=== PATIENT | male | born 1940 | race Caucasian/White ===

== ENCOUNTER 2019-12-16 12:51 | Observation (INO) | payer MEDICARE, OTHER ==
[~2019-12-16] VITALS: Ht 193 cm; Wt 107.5 kg
--- NOTE | 2019-12-16 12:51 | NUR ---
PATIENT PRESENTED TO THE EMERGENCY ROOM WITH ADMISSION ORDERS FROM DR ORTEGA'S OFFICE; [facility] ADMINISTRATOR NOTIFIED AND PATIENT REDIRECTED TOT HE FRONT FOR DIRECT ADMISSION
--- OUTSIDE RECORDS SUMMARY | 2019-12-16 12:53 | XMS REPORT | Continuity of Care Document ---
Author Author Max [place] [employer] YESSY E[place] tag[place] Address Unknown Phone Unavailable Care Team Providers Care Wireless Sales Associate Name Role Phone [email or web address] Unavailable Un available Problems Problem Status Onset Date Classification Date Reported Comments Source LEFT SHOULDER Active 12/04/2019 [facility] [place] DX: S43.005A=UNSPECIFIED DISLOCATION OF Active 11/11/2019 [facility] Abrasion of other part of head, initial encounter 10/27/2019 10/29/2019 [facility] Anterior dislocation of unspecified mari leslye, initial encounter 10/27/2019 10/29/2019 [facility] SHOULDER PAIN OR INJURY Active 10/27/2019 [facility] Unspecified injury of head, initial encounter 02/05/2019 02/07/2019 [facility] EYE PAIN Active 02/05/2019 [facility] NEAR SYNCOPE Active 01/28/2019 [facility] WEAKNESS Active 01/28/2019 [facility] Hypertension Active 09/29/2013 [facility] Hyperlipidemia Active 09/29/2013 [facility] Type 2 Diabetes Mellitus Active 09/29/2013 [facility] Urine Tests Nonspecific Abnormal Findings Active 09/29/2013 [facility] Hyperactivity Of The Bladder A ctive 09/29/2013 [facility] 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 WASTE: F/P - Black; E - Municipal Trash Bin Inactive 11/27/2019 [facility] Dotarem 376.9 mg /mL (0.5 mmol/mL) intravenous solutio n Notes: (Same as: Dotarem) Inactive 11/27/2019 [facility] Valium 5 mg, Route: IVP, Drug form: INJ, ONCE, Dosing Weight 104.545, kg, Priority: STAT, Start date: 10/27/19 17:57:00 CDT, Stop date: 10/27/19 17:57:00 CDT Inactive 10/27/2019 [facility] Fentanyl 50 microgram, Route: IVP, ONCE, Dosing Weight 104.545, kg, Priority: STAT, Start date: 10/27/19 17:57:00 CDT, Stop date: 10/27/19 17:57:00 CDT Inactive 10/27/2019 [facility] Versed 5 mg, Route: IVP, ONCE, Dosing Weight 104.545, kg, Priority: STAT, Start date: 10/27/19 17:56:00 CDT, Stop date: 10/27/19 17:56:00 CDT Inactive 10/27/2019 [facility] Acetaminophen 300 MG / Codeine Phosphate 30 MG Oral Tablet [Tylenol with Codeine #3] 1 tab, PO, Q6H, PRN Pain, X 7 day, # 11 tab, 0 Refill(s) Active 10/27/2019 [facility] Ondansetron Notes: (Same as: [place] orona) MEDICATION WASTE Product Size: 4 mg Product Wasted: ___ mg Inactive 10/27/2019 [facility] Morphine Notes: (Same as:MORPh ine Sulfate) Inactive 10/27/2019 [facility] tramadol hydrochloride 50 MG Oral Tablet 50 mg = 1 tab, PO, BID, X 3 day, # 6 tab, 0 Refill(s) Active 02/05/2019 [facility] Tramadol 50 kg, Priority: STA T, Start date: 02/05/19 14:19:00 CDT, Stop date: 02/05/19 14:19:00 CDT Inactive 02/05/2019 [facility] remove patch 1 patch, Route: T OP, Drug form: ERFILM, ONCE, Start date: 01/31/19 13:08:00 CDT, Stop date: 01/31/19 13:08:00 CDT, 0 No Longer Active 01/31/2019 [facility] Aspirin Enteric Coated 81 mg oral delaye d release tablet 81 mg = 1 tab, PO, Daily, # 30 tab, 0 Re fill(s), Pharmacy: [facility]/pharmacy #[id number] Active 01/29/2019 [facility] meclizine 25 mg oral tablet 25 mg = 1 tab, PO, TID, PRN Dizziness, # 20 tab, 0 Refill(s), Pharmacy: [facility]/pharmacy #[id number] Active 01/29/2019 [facility] Protonix Notes: Tablet should not be chewed or crushed. (Same as: Protonix) Inactive 01/29/2019 [facility] Lovenox Notes: (Same as: Loven ox) No Longer Active 01/29/2019 [facility] lisinopril 40 mg oral tablet 4 0 mg = 1 tab, PO, Daily, # 30 tab, 0 Refill(s) Active 01/28/2019 [facility] levothyroxine 75 mcg (0.075 mg) oral tablet 75 microgram = 1 tab, PO, Daily, # 30 tab, 0 Refill(s) Active 01/28/2019 [facility] atorvastatin 40 mg oral tablet 40 mg = 1 tab, PO, Bedtime, # 30 tab, 0 Refill(s) Active 01/28/2019 [facility] Vitamin D3 2000 intl units oral capsule 2,000 IntlUnit = 1 cap, PO, Daily, # 100 cap, 3 Refill(s) Active 01/28/2019 [facility] 24 HR Bupropion Hydrochloride 150 MG Ext ended Release Tablet 150 mg = 1 tab, PO, Q24H, # 30 tab, 0 Refill(s) Active 01/28/2019 [facility] Clonidine Hydrochloride 0.1 MG Oral Tablet 0.1 mg = 1 tab, PO, Daily, # 90 tab, 3 Refill(s) Active 01/28/2019 [facility] metoprolol extended release 50 mg, PO, Daily, 0 Refill(s) Active 01/28/2019 [facility] amLODIPine 5 mg oral tablet 5 mg = 1 tab, PO, Daily, # 30 tab, 0 Refill(s) Active 01/28/2019 [facility] Meclizine Notes: (Same as: Ant ivert) No Longer Active 01/28/2019 [facility] 72 HR Scopolamine 0.0139 MG/HR Transdermal Patch Notes: Change patch every 72 hours (Same as: Transderm-Scop) Inactive 01/28/2019 [facility] Nicotine Notes: (Same as: Conrado almodovar) "Remove old patch before application of new patch" WASTE: F/P - P Waste Black; E - P Waste Black No Longer Active 01/28/2019 [facility] Seroquel Notes: (Same as: SERO quel) No Longer Active 01/28/2019 [facility] Hydralazine Notes: (Same as: A presoline) Push over 5 minutes No Longer Active 01/28/2019 [facility] Acetaminophen 325 MG / Hydrocodone Hemalatha trate 5 MG Oral Tablet [[place] 5/325] Notes: (Same as: [place] 325/5) Do not ex ceed 4gm/day of acetaminophen. No Longer Activ e 01/28/2019 [facility] Maalox Advanced Regular Strength SUSP Notes: (aluminum hydroxide-magnesium hyd-simethicone [phone]/5ml 30 ml ud RODGER) No Longer Active 01/28/2019 [facility] Albuterol 0.833 MG/ML / Ipratropium Brom lb 0.167 MG/ML Inhalant Solution [DuoNeb] Notes: (Same as: Duoneb) Inactive 01/28/2019 [facility] phenol Notes: WASTE: F/P - Clark ck; E - Municipal Trash Bin No Longer Active 01/28/2019 [facility] Mucinex Notes: (Same as: Guaif enesin LA, Humibid LA, Mucinex) "Do Not Crush" Take medication with plenty of water. No Longer Active 01/28/2019 [facility] Simethicone Notes: (Same as: Megan ylicon) No Longer Active 01/28/2019 [facility] Morphine Notes: (Same as:MORPh ine Sulfate) No Longer Active 01/28/2019 [facility] Robitussin-AC oral syrup Notes : (Same As: Robitussin AC) No Longer Active 01/28/2019 [facility] Tessalon Perles Notes: (Same A s: Azaleaon Perles) "Do Not Crush" No Longer Active 01/28/2019 [facility] Acetaminophen Notes: Do not ex ceed 4 gm/day. (Same as: Tylenol) No Longer Active 01/28/2019 [facility] Dextrose 50% Syringe 12.5 gm, 25 mL, Route: IVP, Drug Form: INJ, Dosing Weight 113.636, kg, PRN, PRN Blood Glucose Results, Start date: 01/28/19 12:07:00 CDT, Duration: 30 day, Stop date: 02/27/19 12:06:00 CDT, 0 No Longer Active 01/28/2019 [facility] Melatonin Notes: (Same as: Suzanne atonin) No Longer Active 01/28/2019 [facility] Trazodone Notes: (Same As: Tai yrel) No Longer Active 01/28/2019 [facility] Ondansetron Notes: (Same as: [place] orona) MEDICATION WASTE Product Size: 4 mg Product Wasted: ___ mg No Longer Active 01/28/2019 [facility] Diphenhydramine 25 mg, 1 tab, Route: PO, Drug form: TAB, Q6H, Dosing Weight 113.636, kg, PRN as needed for allergy symptoms, Start date: 01/28/19 12:07:00 CDT, Duration: 30 day, Stop date: 02/27/19 12:06:00 CDT, 0 No Longer Active 01/28/2019 [facility] POLYETHYLENE GLYCOL 3350 Notes : Dissolve in 8 oz of water or juice. (Same as: Miralax) No Longer Active 01/28/2019 [facility] Docusate Notes: (Same as: Cola ce) (Do Not Crush) No Longer Active 01/28/2019 [facility] Glucagon 1 mg, Route: IM, Drug form: PDR/INJ, PRN, Dosing Weight 113.636, kg, PRN Blood Glucose Results, Start date: 01/28/19 12:07:00 CDT, Duration: 30 day, Stop date: 02/27/19 12:06:00 CDT, 0 No Longer Active 01/28/2019 [facility] Bisacodyl Notes: (Same As: Dul colax, Bisco-Lax) No Longer Active 01/28/2019 [facility] Saline Flush 0.9% Notes: Same as: BD Posiflush Sterile Inactive 01/28/2019 [facility] Sodium Chloride 0.9% (Bolus) IV 1,000 mL, 1000 ml/hr, Infuse Over: 1 hr, Route: IV, 1,000, Drug form: INJ, ONCE, Priority: STAT, Dosing Weight 113.636 kg, Start date: 01/28/19 8:00:00 CDT, Stop date: 01/28/19 8:00:00 CDT, 0 Inactive 01/28/2019 [facility] Lisinopril 40 MG Oral Tablet ; Start Date: 05/31/2013; End Date: (Active) Active 05/31/2013 [facility] CloNIDine HCl 0.1 MG Oral Tablet ; Start Date: ; End Date: (Active) Inactive [facility] Atorvastatin Calcium 40 MG Oral Tablet ; Start Date: ; End Date: (Active) Inactive [facility] No Active Medications No Activ e Medications Active [facility] Lipitor 40 MG Oral Tablet (Ac tive) Active [facility] CloNIDine HCl 0.1 MG Oral Tablet (Active) Active [facility] VESIcare 5 MG Oral Tablet (Ac tive) Active [facility] Allergies, Adverse Reactions, Alerts Substance Category Reaction Severity Reaction type Status Date Reported Comments Source Not Known [facility] No Known Drug Allergies drug a llergy drug aller gy Active [facility] Immunizations Immunization Date Given Site Status Last Updated Comments Source diphtheria/pertussis, acel/tetanus adult 02/05/2019 Left deltoid completed [facility] Fluzone Intramuscular Injectable 04/17/2013 completed [facility] Zoster (Zostavax) 08/21/2011 completed [facility] Results Order Name Results Value Reference Range Date Interpretation Comments Source CHEM PANEL Glucose Lvl 96 70 - 99 01/29/2019 [facility] CHEM PANEL BUN 10 7 - 22 01/29/2019 [facility] CHEM PANEL Potassium Lvl 4.4 3.5 - 5.1 01/29/2019 [facility] CHEM PANEL Creatinine Lvl 0.98 0.50 - 1.40 01/29/2019 [facility] CHEM PANEL Sodium Lvl 139 135 - 145 01/29/2019 [facility] CHEM PANEL Calcium Lvl 8.4 8.5 - 10.5 01/29/2019 [facility] CHEM PANEL AGAP 7.4 10.0 - 20.0 01/29/2019 [facility] CHEM PANEL Chloride Lvl 110 95 - 109 01/29/2019 [facility] CHEM PANEL CO2 26 24 - 32 01/29/2019 [facility] CHEM PANEL eGFR 74 01/29/2019 Result Comment: The eGFR is calculated using the CKD-EPI formula. In most young, healthy individuals the eGFR will be >90 mL/min/1.73m2. The eGFR declines with age. An eGFR of 60-89 may be normal in some populations, particularly the elderly, for whom the CKD-EPI formula has not been extensively validated. Use of the eGFR is not recommended in the following populations:

Individuals with unstable creatinine concentrations, including patients and those with serious co-morbid conditions.

Patients with extremes in muscle mass or diet.

The data above are obtained from the National Kidney Disease Education Program (NKDEP) which additionally recommends that when the eGFR is used in patients with extremes of body mass index for purposes of drug dosing, the eGFR should be multiplied by the estimated BMI. [facility] HEMATOLOGY MPV 7.9 7.4 - 10.4 01/29/2019 [facility] HEMATOLOGY Hct 35.3 42.0 - 54.0 01/29/2019 [facility] HEMATOLOGY Hgb 12.2 14.0 - 18.0 01/29/2019 [facility] HEMATOLOGY RBC 3.99 4.70 - 6.10 01/29/2019 [facility] HEMATOLOGY Platelet 142 133 - 450 01/29/2019 [facility] HEMATOLOGY RDW 13.3 11.5 - 14.5 01/29/2019 [facility] HEMATOLOGY MCHC 34.6 32.0 - 36.0 01/29/2019 [facility] MCH 30.6 27.0 - 31.0 01/29/2019 [facility] HEMATOLOGY MCV 88.4 80.0 - 94.0 01/29/2019 [facility] HEMATOLOGY WBC 6.2 3.7 - 10.4 01/29/2019 [facility] LIPIDS CHD Risk 2.61 4.00 - 7.30 01/29/2019 [facility] LIPIDS Chol 99 <=199 mg/dL 01/29/2019 [facility] LIPIDS VLDL 19 01/29/2019 [facility] LIPIDS LDL (Calculated) 42 <=99 mg/dL 01/29/2019 [facility] LIPIDS HDL 38 >=61 mg/dL 01/29/2019 [facility] LIPIDS Trig 95 <=149 mg/dL 01/29/2019 [facility] SPECIAL CHEMISTRY Hgb A1C 6.2 <=5.6 % 01/29/2019 [facility] CARDIAC ENZYMES Troponin-I <0.02 0.00 - 0.40 01/29/2019 [facility] CARDIAC ENZYMES Troponin-I <0.02 0.00 - 0.40 01/28/2019 [facility] CARDIAC ENZYMES Troponin-I <0.02 0.00 - 0.40 01/28/2019 [facility] CARDIAC ENZYMES BNP 25 <=100 pg/mL 01/28/2019 [facility] ELECTROLYTES AGAP 12.7 10.0 - 20.0 01/28/2019 [facility] ELECTROLYTES eGFR 61 01/28/2019 Result Comment: The eGFR is calculated using the CKD-EPI formula. In most young, healthy individuals the eGFR will be >90 mL/min/1.73m2. The eGFR declines with age. An eGFR of 60-89 may be normal in some populations, particularly the elderly, for whom the CKD-EPI formula has not been extensively validated. Use of the eGFR is not recommended in the following populations:

Individuals with unstable creatinine concentrations, including patients and those with serious co-morbid conditions.

Patients with extremes in muscle mass or diet.

The data above are obtained from the National Kidney Disease Education Program (NKDEP) which additionally recommends that when the eGFR is used in patients with extremes of body mass index for purposes of drug dosing, the eGFR should be multiplied by the estimated BMI. [facility] ELECTROLYTES Sodium Lvl 143 135 - 145 01/28/2019 [facility] ELECTROLYTES Chloride Lvl 108 95 - 109 01/28/2019 [facility] ELECTROLYTES Calcium Lvl 8.0 8.5 - 10.5 01/28/2019 [facility] ELECTROLYTES CO2 26 24 - 32 01/28/2019 [facility] ELECTROLYTES Potassium Lvl 3.7 3.5 - 5.1 01/28/2019 [facility] ELECTROLYTES Glucose Lvl 139 70 - 99 01/28/2019 [facility] ELECTROLYTES BUN 11 7 - 22 01/28/2019 [facility] ELECTROLYTES Creatinine Lvl 1.1 5 0.50 - 1.40 01/28/2019 [facility] HEMATOLOGY Eosinophils # 0.2 0.0 - 0.5 01/28/2019 [facility] HEMATOLOGY Basophils 0.3 0.0 - 1.0 01/28/2019 [facility] Lymphocytes 8.8 20.0 - 40.0 01/28/2019 [facility] Monocytes 7.1 2.0 - 12.0 01/28/2019 [facility] HEMATOLOGY Eosinophils 2.6 0.0 - 4.0 01/28/2019 [facility] Monocytes # 0.5 0.0 - 0.8 01/28/2019 [facility] Lymphocytes # 0.6 1.0 - 5.5 01/28/2019 [facility] HEMATOLOGY Neutrophils # 5.9 1.5 - 8.1 01/28/2019 [facility] Segs 81.2 45.0 - 75.0 01/28/2019 [facility] MPV 7.8 7.4 - 10.4 01/28/2019 [facility] Platelet 132 133 - 450 01/28/2019 [facility] RDW 13.4 11.5 - 14.5 01/28/2019 [facility] MCHC 33.9 32.0 - 36.0 01/28/2019 [facility] MCH 30.3 27.0 - 31.0 01/28/2019 [facility] MCV 89.3 80.0 - 94.0 01/28/2019 [facility] Hct 37.3 42.0 - 54.0 01/28/2019 [facility] Hgb 12.6 14.0 - 18.0 01/28/2019 [facility] RBC 4.17 4.70 - 6.10 01/28/2019 [facility] WBC 7.3 3.7 - 10.4 01/28/2019 [facility] Pathology Reports No Data Provided for This Section Diagnostic Reports Report Value Date Source Shoulder w contrast MRI PROCED URE INFORMATION: Exam: MR Left Upper Extremity Joint With Contrast; Shoulder Exam date and time: 11/27/2019 9:14 AM Age: 79 years old Clinical indication: Unspecified dislocation of left shoulder joint, initial encounter; Additional info: S/P arthogram/s43.005a dislocation of left shoulder joint, initial encounter TECHNIQUE: Imaging protocol: MR of the Left upper extremity with contrast. Exam focused on the shoulder. Contrast route: Intra-articular. Please see same-day arthrogram procedure report. COMPARISON: SHOULDER ARTHROGRAM DX, LEFT 11/27/2019 8:44 AM FINDINGS: Motion degraded study. ROTATOR CUFF AND ASSOCIATED STRUCTURES Rotator cuff: There is diffuse thinning of the supraspinatus and infraspinatus tendon. There is a low-grade partial-thickness articular surface tear along the insertion of the supraspinatus measuring about 5 mm in AP dimension. There is also a low-grade partial-thickness articular surface tear of the subscapularis insertion, measuring about 5 mm in mediolateral dimension. There is subscapularis tendinosis. Infraspinatus tendon is intact. Bursa: Trace amount of subacromial-subdeltoid bursal fluid. Musculature: There is minimal muscle edema in the subscapularis, supraspinatus, infraspinatus. Acromioclavicular joint: There is mild degenerative change of the AC joint. Acromion has a type II undersurface. OSSEOUS STRUCTURES There is bone marrow edema in the superior lateral humeral head, suggestive of prior Hill-Sachs injury. This will be described further detailed below. Scattered degenerative marrow edema and cystic changes. LONG BICIPITAL TENDON Biceps tendon is located within bicipital groove. No high-grade biceps tendon tear. GLENOHUMERAL JOINT Cartilage and Bone: There is a nondisplaced Hill-Sachs injury with focal marrow edema in the superior lateral humeral head. There is also marrow edema greater tuberosity. There is very minimal cortical depression. Labrum: There is diffuse degenerative tearing of the labrum. Other support structures: There is a partial tear of the inferior glenohumeral ligament. There is mild associated extravasation of intra-articular contrast. IMPRESSION: 1. Diffuse thinning of the supraspinatus and infraspinatus tendon. Focal low-grade partial-thickness articular surface tear of the supraspinatus insertion. 2. Diffuse subscapularis tendinosis with a low-grade partial thickness articular surface insertional tear. 3. Diffuse degenerative tearing of the l abrum. Evidence of a nondisplaced / nondepressed Hill-Sachs injury, with focal bone marrow edema along the humeral head. This is suggestive of prior dislocation. Mild persistent posterior subluxation of the humeral head relative to the glenoid. 4. Partial inferior glenohumeral ligamen t tear, with mild associated extravasation of intra-articular contrast. Majority of IGHL appears intact. 5. Minimal muscle edema in the subscapul hernandez, supraspinatus, and infraspinatus muscles. 6. Mild AC joint arthrosis. Leodan Barros MD On 11/27/2019 11:40:25; [id number] 11/27/2019 [facility] Shoulder arthrogram DX PROCEDU RE INFORMATION: Exam: IR Left Shoulder arthrography; Radiological Supervision and Interpretation Exam date and time: 11/27/2019 8:44 AM Age: 79 years old Clinical indication: Unspecified dislocation of left shoulder joint, initial encounter; Additional info: /s43.005a TECHNIQUE: Imaging protocol: Left Shoulder arthrography. Radiological supervision and interpretation. The interpreting physician was present and supervised the procedure. Contrast material: OMNIPAQUE 300; Contrast volume: 10 ml; Contrast route: INTRA-ARTICULAR; Other contrast: 0.2 ml dotarem; COMPARISON: SHOULDER SERIES DX, LEFT 10/27/2019 5:37 PM RADIATION DOSE METRICS: Fluoroscopy time: 28 Number of fluoro spot images: 2 Reference air kerma (JACK): 9 mGy FINDINGS: Advanced practice providers: None. CONSENT AND SEDATION INFO: Consent: The procedure, risks, benefits and alternatives of the procedure were discussed. Time out: Timeout was performed prior to the procedure. Procedure summary: Patient was prepped and draped in a sterile fashion. Lidocaine was used for local anesthesia. Left shoulder arthrogram with dilute gadolinium contrast in water soluble nonionic contrast. Approximately 12 cc of contrast instilled into left shoulder under fluoroscopic guidance via 22 gauge spinal needle. The fluoroscopic arthrographic images are normal, without radiographic evidence for complete rotator cuff tear. Procedural imaging: Fluoroscopic guidance as described above. IMPRESSION: Left shoulder arthrogram prior to MRI. No definite fluoroscopic arthrographic abnormality appreciated. Please see MRI study for more specific anatomic data. Sherman Hernandez MD On 11/27/2019 12:44:53; [id number] 11/27/2019 [facility] Shoulder series DX PROCEDURE I NFORMATION: Exam: XR Left Shoulder Exam date and time: 10/27/2019 5:37 PM Age: 79 years old Clinical indication: Pain; Shoulder; Left; Additional info: /post reduction TECHNIQUE: Imaging protocol: XR Left shoulder. Views: 2 or more views. AP INT/ EXT ROTATION, SCAPULAR Y COMPARISON: SHOULDER SERIES DX, LEFT 10/27/2019 2:26 PM FINDINGS: Bones/joints: Previously seen dislocation has been reduced. Soft tissues: No acute pathology appreciated. Notes: If there is further concern, follow-up radiographs or MRI of the shoulder may be performed for complete assessment. IMPRESSION: Successful reduction.. Prema Elmore MD On 10/27/2019 18:13:02; [id number] 10/27/2019 [facility] Hand 2 views DX PROCEDURE INFO RMATION: Exam: XR Left Hand Exam date and time: 10/27/2019 3:11 PM Age: 79 years old Clinical indication: Injury or trauma; Additional info: /pain TECHNIQUE: Imaging protocol: XR Left hand. Views: 1 or 2 views. Frontal Lateral COMPARISON: No relevant prior studies available. FINDINGS: Bones/joints: No acute bony fracture or joint dislocation is seen. There is mild osteoarthrosis throughout the PIP and DIP joints of the hand. Soft tissues: No radiopaque foreign bodies. Notes: If there is further concern, recommend follow-up radiographs or MRI for complete assessment. IMPRESSION: Degenerative changes of the left hand without acute bony abnormality. Michael Collins MD On 10/27/2019 15:37:22; [id number] 10/27/2019 [facility] Trauma Brain wo contrast CT Ra diation Dose CTDIVOL = 0 (mGy): DLP = 1105.56 (mGy-cm) PROCEDURE INFORMATION: Exam: CT Head Without Contrast Exam date and time: 10/27/2019 3:13 PM Age: 79 years old Clinical indication: Injury or trauma; fall. TECHNIQUE: Imaging protocol: Computed tomography of the head without contrast. Total DLP: 1105.56 mGy-cm Radiation optimization: All CT scans at this facility use at least one of these dose optimization techniques: automated exposure control; mA and/or kV adjustment per patient size (includes targeted exams where dose is matched to clinical indication); or iterative reconstruction. COMPARISON: BRAIN WO CONTRAST CT 02/05/2019 2:04 PM FINDINGS: Brain: No acute parenchymal hemorrhage or large subacute infarction. There are areas of low attenuation in the supratentorial white matter that are non-specific, but favor chronic microvascular ischemic changes.No acute subdural or subarachnoid hemorrhage. No mass effect or midline shift. Ventricles and sulci: Mildly widened, likely secondary to age related volume loss. No acute hydrocephalus. Bones/joints: No acute fracture or destructive osseous lesion. Sinuses: Mild mucosal thickening of the maxillary sinuses. No fluid level in the paranasal sinuses. Mastoid air cells: No mastoid effusion. Soft tissues: No soft tissue swelling or hematoma. IMPRESSION: No acute intracranial hemorrhage, mass effect or large subacute infarction. Duane Jefferson MD On 10/27/2019 15:43:48; [id number] 10/27/2019 [facility] Shoulder series DX PROCEDURE I NFORMATION: Exam: XR Left Shoulder Exam date and time: 10/27/2019 2:36 PM Age: 79 years old Clinical indication: Injury, trauma to the left shoulder, status post fall. TECHNIQUE: Imaging protocol: XR Left shoulder. Views: 2 or more views. AP INT/ EXT ROTATION, SCAPULAR Y COMPARISON: No relevant prior studies available. FINDINGS: See impression. IMPRESSION: 1. Anterior glenohumeral dislocation, le ft shoulder. 2. No definite fracture or Hill-Sachs de formity is seen. The Hill-Sachs deformity, present, may be best demonstrated on post reduction studies. 3. No evidence of underlying degenerativ e changes. Solis Marcos MD On 10/27/2019 15:06:15; [id number] 10/27/2019 [facility] Spine cervical wo contrast CT (ER) Spine cervical wo contrast CT (ER) CLINICAL HX: Pain, Trauma - pain post fall; COMPARISON: none TECHNIQUE: Contiguous transaxial 2.5 mm images were obtained through the cervical spine. Images were reformatted in sagittal and coronal projections. CT imaging performed at this location utilizes radiation dose optimization techniques which include one or more of the following: -Automated exposure control -Adjustment of the mA and/or kV accordin g to patient size -Use of iterative reconstruction [email or web address] ue CT Radiation Dose DLP 886.37 mGy-cm FINDINGS: BONES: There is no evidence for fracture or subluxation. The alignment on the sagittal and coronal reformations is within normal limits. There is moderate multilevel spondylosis, facet arthrosis and degenerative disc disease noted in the cervical spine. Varying degrees of foraminal stenosis is noted thorough out the cervical spine. Relatively shallow central canal with moderate to severe central canal stenosis at C4-C5 and to a lesser extent C5-C6 and C3-C4 levels. NECK SOFT TISSUES: The prevertebral soft tissues are within normal limits. Airway and lung apices: Visualized portion of the lung apices and airway are clear. IMPRESSION: No evidence for fracture or subluxation. Advanced degenerative changes, midcervical spine. SL: [id number] 02/05/2019 [facility] Brain wo contrast CT Patient N kristyn: YESSY ARCINIEGA : 1940; Age: 78 years y/o Male MR: [id number] Study: Brain wo contrast CT 02/05/2019 12:51 PM CDT Ordering Physician: Drea Martin Clinical Indication: Headache with Trauma - pain from fall; Comparison: None TECHNIQUE: CT images were obtained from the foramen magnum to the vertex without the use of intravenous contrast on a multidetector CT. Coronal and sagittal reconstructions were obtained. CT imaging performed at this location utilizes radiation dose optimization techniques which include one or more of the following: -Automated exposure control -Adjustment of the mA and/or kV accordin g to patient size -Use of iterative reconstruction [email or web address] ue CT Radiation Dose DLP 1020 mGy-cm FINDINGS: There is no evidence of acute intracranial hemorrhage, subacute territorial infarct, mass effect, midline shift, or extra-axial fluid collection. Please note that acute infarcts can be occult on CT. There is moderate generalized cerebral volume loss with associated ventricular prominence. There are moderate nonspecific supratentorial white matter ill- defined hypodensities likely representing chronic small vessel ischemic changes in this age. There are no chronic territorial infarcts. There are calcifications in the carotid siphons and intradural vertebral arteries. There is moderate mucosal thickening in the right maxillary sinus and mild mucosal thickening in the right sphenoid sinus.. Left frontal scalp hematoma. IMPRESSION: Moderate age-related and chronic ischemic changes without evidence of acute intracranial process. Left frontal scalp hematoma. Moderate mucosal thickening and air-fluid level in the right maxillary sinus and mild mucosal thickening in the right sphenoid sinus. Please correlate for acute sinusitis. If there is further concern for intracranial pathology or acute stroke, further assessment with an MRI of the brain should be considered. SL: [id number] 02/05/2019 [facility] Brain wo contrast MRI Clinical Indication: - syncope. Comparison: None. TECHNIQUE: Multiplanar MRI of the brain is performed without gadolinium contrast. Axial T1, T2, FLAIR and diffusion weighted imaging is performed with sagittal FLAIR and coronal T1-weighted imaging. Contrast: None. FINDINGS: BRAIN PARENCHYMA: Generalized brain parenchymal atrophy. Few small foci of T2 hyperintensity in the bilateral periventricular region suggestive of mild microvascular white matter disease. There is no mass effect or midline shift. There is no extra-axial fluid collection, intraventricular or intraparenchymal hemorrhage. There is no magnetic susceptibility or GRE imaging to suggest recent or remote intracranial hemorrhage. There is no diffusion weighted imaging or ADC map abnormality to suggest acute/subacute ischemia. The corpus callosum appears normal. CEREBELLOPONTINE REGIONS AND SKULL BASE: The cerebellopontine angles appear unremarkable. The skull base, craniocervical junction, and brainstem are normal. The optic chiasm is normal. The sellar and pineal regions are unremarkable. VENTRICLES: The ventricles are normal in size and configuration. The basilar cisterns are normal. VISUALIZED VESSELS: The venous sinuses are grossly unremarkable. The expected intracranial flow voids are present. ORBITS, VISUALIZED PARANASAL SINUSES AND MASTOIDS: The visualized orbits are unremarkable. There is a large polyp/retention cyst in the right maxillary sinus. The mastoid air cells are clear. IMPRESSION: No acute infarct, intracranial hemorrhage, mass or midline shift. Age-related involutional changes. SL: [id number] 01/28/2019 [facility] Carotid artery Doppler bilat US Patient Name: YESSY ARCINIEGA : 1940; Age: 78 years Male MR: [id number] Study: Carotid artery Doppler bilat US 01/28/2019 12:09 CDT Clinical Indication: Unexplained syncope. COMPARISON: None TECHNIQUE: Pagan-scale, color Doppler and spectral Doppler of the carotid arteries was performed. Any reported ICA stenoses indirectly reference the distal internal carotid diameter as the denominator for the stenosis measurement, utilizing consensus panel criteria. FINDINGS: RIGHT: Mild calcified plaque formation. ICA PSV 69 cm/sec CCA PSV 90 cm/sec ICA/CCA ratio 0.77 Vertebral flow is antegrade. External carotid artery is patent. LEFT: No significant plaque. ICA PSV 65 cm/sec CCA PSV 118 cm/sec ICA/CCA ratio 0.55 Vertebral flow is antegrade. External carotid artery is patent. IMPRESSION: 1. RIGHT: ICA stenosis <50% by velocity criteria. 1. LEFT: ICA stenosis <50% by velocity c daniel. Consensus panel Doppler US criteria for diagnosis of ICA stenosis: Stenosis (%) ICA PSV (cm/sec) ICA/CCA ratio <50 <125 <2.0 50-69 125-230 2.0-4.0 >70 but less than >230 >4.0 near occlusion Near occlusion High, low, or Variable undetectable SL: [id number] 01/28/2019 [facility] Chest 1view DX Clinical Indica tion: - syncope; Comparison: None FINDINGS: AP chest. No pleural effusion or focal consolidation. Normal heart size. Tortuous thoracic aorta. No acute osseous abnormality. IMPRESSION: No chest radiographic evidence of acute cardiopulmonary disease. SL: [id number] 01/28/2019 [facility] Consultation Notes No Data Provided for This Section Discharge Summaries No Data Provided for This Section History and Physicals No Data Provided for This Section Vital Signs Vital Sign Value Date Comments Source Respitory Rate 17 10/28/2019 [facility] Systolic (mm Hg) 146 10/28/2019 [facility] Diastolic (mm Hg) 67 10/28/2019 [facility] Respitory Rate 18 10/27/2019 [facility] Systolic (mm Hg) 133 10/27/2019 [facility] Diastolic (mm Hg) 75 10/27/2019 [facility] Respitory Rate 18 10/27/2019 [facility] Systolic (mm Hg) 137 10/27/2019 [facility] Diastolic (mm Hg) 79 10/27/2019 [facility] Heart Rate 73 10/27/2019 [facility] Heart Rate 67 10/27/2019 [facility] Heart Rate 93 10/27/2019 [facility] Height 187.96 cm 10/27/2019 [facility] BMI Calculated 29.59 10/27/2019 [facility] Weight 104.545 10/27/2019 [facility] Temperature Oral (F) 98.6 F 10/27/2019 [facility] Systolic (mm Hg) 168 02/05/2019 [facility] Diastolic (mm Hg) 88 02/05/2019 [facility] Respitory Rate 18 02/05/2019 [facility] Heart Rate 67 02/05/2019 [facility] Temperature Oral (F) 98.1 F 02/05/2019 [facility] BMI Calculated 29.52 02/05/2019 [facility] Weight 110 02/05/2019 [facility] Height 193.04 cm 02/05/2019 [facility] Heart Rate 83 02/05/2019 [facility] Systolic (mm Hg) 165 02/05/2019 [facility] Diastolic (mm Hg) 96 02/05/2019 [facility] Respitory Rate 18 02/05/2019 [facility] Temperature Oral (F) 98.1 F 02/05/2019 [facility] Systolic (mm Hg) 130 01/29/2019 [facility] Diastolic (mm Hg) 70 01/29/2019 [facility] Respitory Rate 18 01/29/2019 [facility] Heart Rate 58 01/29/2019 [facility] Temperature Oral (F) 97.8 F 01/29/2019 [facility] Temperature Oral (F) 98.2 F 01/29/2019 [facility] Systolic (mm Hg) 114 01/29/2019 [facility] Diastolic (mm Hg) 59 01/29/2019 [facility] Respitory Rate 18 01/29/2019 [facility] Heart Rate 54 01/29/2019 [facility] Respitory Rate 18 01/29/2019 [facility] Systolic (mm Hg) 120 01/29/2019 [facility] Diastolic (mm Hg) 62 01/29/2019 [facility] Heart Rate 59 01/29/2019 [facility] Temperature Oral (F) 98.6 F 01/29/2019 [facility] Height 193.04 cm 01/28/2019 [facility] BMI Calculated 30.13 01/28/2019 [facility] Weight 112.273 01/28/2019 [facility] Weight 113.636 01/28/2019 [facility] BMI Calculated 33.98 01/28/2019 [facility] Height 182.88 cm 01/28/2019 [facility] Encounters Location Location Details Encounter Type Encounter Number Reason For Visit Attending Provider ADM Date DC Date Status Source AUDIT [id number] 04/17/2013 04/17/2013 [facility] AUDIT [id number] 05/31/2013 05/31/2013 [facility] AUDIT [id number] 06/21/2013 06/21/2013 [facility] AUDIT [id number] 09/15/2013 09/15/2013 [facility] Rafael SÁNCHEZ art: CHAGO THAO, Status: Pen, Time: 9:00 AM [id number] 09/30/19 14 09/15/2013 [facility] AUDIT [id number] 09/29/2013 09/29/2013 [facility] Observation [id number] Octavio Villa 01/28/2019 01/29/2019 [facility] [id number] Ron Valerioeal 02/05/2019 02/05/2019 [facility] [id number] Roberto Kennedy 10/27/2019 10/28/2019 [facility] Outpatient [id number] Richard Mojica Jr 11/27/2019 11/28/2019 [facility] Procedures Procedure Code Date Perfomer Comments Source Cataract surgery [id number] [facility] Laparoscopic repair of hernia [id number] [facility] Repair of retina [id number] [facility] Assessment and Plan Assessment and Plan Date Source Extracted from:Title: Discharge Summary * Author: Octavio Villa MD Date: 01/29/19 Discharge Information Disposition to home Condition stable Medications: See med reconciliation form Diet: Heart healthy Discharge Plan In the event of any worsening symptoms patient advised to come back to the ED for further evaluation Discharge summary to greater than 35 minutes Extracted from:Title: Cardiology Progress Note Author: Bryan Schroeder MD Date: 01/29/19 Impression and Plan Syncope Hypertension Type 2 diabetes Obesity Chronic anemia Aortic regurgitation, mild Bradycardia - EKG unremarkable. CE neg x 3 - TTE with preserved EF and mild AI - Tele unremarkable with occasional sinu s rehana though unlikely to cause sx. - Neurologic studies including MRI and c arotid unrevealing - Orthostatic neg. - Likely vasovagal given neg work up abo ve Extracted from:Title: Cardiology Consultation Author: Bryan Schroeder MD Date: 01/28/19 Impression and Plan Syncope Hypertension Type 2 diabetes Obesity Chronic anemia - EKG unremarkable. Trend CE to r/o ACS - Monitor on tele - Check TTE - Neuro consulted with MRI and carotid o rdered - Check orthostatic. Possibly vasovagal if cardiac and neuro work up unremarkable - Rest of care as per clinical course Extracted from:Title: General Admission H&P * Author: Octavio Villa MD Date: 01/28/19 Impression and Plan 1. Syncopal episode with dizziness 2. Hypertension Plan: MRI of the brain, carotid ultrasound, 2D echo, neurology and cardiology consultation, trend troponins Add scopolamine patch x1, meclizine as needed Resume same antihypertensive medications, PRN hydralazine PT/OT eval Lovenox for DVT prophylaxis 01/29/2019 [facility] Plan of Care Plan of Care Date Source [[facility]] CBC (INCLUDES DIFF/PLT) 09/29/2013 Routine[QL] CMP W/EGFR 09/29/2013 Routine[QL] LIPID PANEL 09/29/2013 Routine[QL] HEMOGLOBIN A1c 09/29/2013 Routine[QL] PSA, TOTAL 09/29/2013 Routine[[facility]] TSH, 3RD GENERATION W/REFLEX TO FT4 09/29/2013 RoutineHemoccult ICT 09/29/2013 Routine[QL] MICROALBUMIN, RANDOM URINE (W/CREATININE) 09/29/2013 Routine 09/29/2013 [facility] Social History Social History Date Source Social History TypeResponse Alcohol Never Smoking Status Never smoker; Ready to change: No; Concerns about tobacco use in household: No; Exposure to Tobacco Smoke None; Cigarette Smoking Last 365 Days No; Reg Smoking Cessation Counseling No entered on: 10/27/19 01/28/2019 Stephanie Never A Smoker (Active) Never Drank Alcohol (Active) Occupation: (Active) 09/29/2013 [facility] Family History Value Date S ource Family history of Cancer (Active) 09/29/2013 [facility] Family history of Cancer (Active) 09/15/2013 [facility] Family history of Cancer (Active) 06/21/2013 [facility] Advance Directives Order Name Results Value Date Source Advance Directives Advance Dir ectives No Advance Directives available. 09/29/2013 [facility] Advance Directives Advance Dir ectives No Advance Directives available. 09/15/2013 [facility] Advance Directives Advance Dir ectives No Advance Directives available. 06/21/2013 [facility] Advance Directives Advance Dir ectives No Advance Directives available. 05/31/2013 [facility] Advance Directives Advance Dir ectives No Advance Directives available. 04/17/2013 [facility] Functional Status No Data Provided for This Section
--- OUTSIDE RECORDS SUMMARY | 2019-12-16 12:53 | XMS REPORT ---
Author Author Rodri YESSY Rachel Organization Unknown Address Unknown Phone Care Team Providers Care Hand Singer Name Role Phone Rachel Mace PP Unavailable Reason for Referral No Reason for Referral was given. History of Present Illness No HPI available. Problems * Normal Routine History And Physical Senior Citizen (65-80) (V70.0); ( Active) * Hypertension (401.9); (Active) * Hyperlipidemia (272.4); (Active) * Type 2 Diabetes Mellitus (250.00); (Active) Medication * Lisinopril 40 MG Oral Tablet; TAKE 1 TABLET DAILY.; Start Date: 05/31/2013; End Date: (Active) * Lipitor 40 MG Oral Tablet; TAKE 1 TABLET DAILY. (Active) * VESIcare 5 MG Oral Tablet; TAKE 1 TABLET DAILY. (Active) * CloNIDine HCl 0.1 MG Oral Tablet; 1 po once a day.. needs office visit; Start Date: ; End Date: (Active) Allergies and Adverse Reactions * No Known Drug Allergies (Active) Past Medical History * History of Rosacea (695.3); (Resolved) Immunization * Fluzone Intramuscular Injectable (Lot #: [id number]) - Administered on: 04/17/2013 * Zoster (Zostavax) - Administered on: 08/21/2011 Family History * Family history of Cancer (Active) Social History * Never A Smoker (Active) * Never Drank Alcohol (Active) Advance Directives * No Advance Directives available. Encounters * AUDIT 09/15/2013 * PRINCESS, Provider: CHAGO THAO, Status: Shay, Time: 9:00 AM 09/29/2013
--- OUTSIDE RECORDS SUMMARY | 2019-12-16 12:53 | XMS REPORT ---
Author Author YESSY Mace Organization Unknown Address Unknown Phone Care Team Providers Care Continuous Loft Operator Name Role Phone Rachel Mace PP Unavailable Reason for Referral No Reason for Referral was given. History of Present Illness No HPI available. Problems * Normal Routine History And Physical Senior Citizen (65-80) (V70.0); ( Active) * Hypertension (401.9); (Active) Medication * Lisinopril 40 MG Oral Tablet; TAKE 1 TABLET DAILY.; Start Date: 05/31/2013; End Date: (Active) Allergies and Adverse Reactions * Not Known Past Medical History * No Significant Medical History Immunization * Fluzone Intramuscular Injectable (Lot #: [id number]) - Administered on: 04/17/2013 Advance Directives * No Advance Directives available. Encounters * AUDIT 05/31/2013 * PRINCESS, Provider: CHAGO THAO, Status: Shay, Time: 9:00 AM 09/29/2013
--- OUTSIDE RECORDS SUMMARY | 2019-12-16 12:53 | XMS REPORT ---
Author YESSY Garvin Organization Unknown Address Unknown Phone Care Team Providers Care Administrative Tech Name Role Phone Janet Sherwood PP Reason for Referral No Reason for Referral was given. History of Present Illness No HPI available. Problems * Normal Routine History And Physical Senior Citizen (65-80) (V70.0); ( Active) Medication * No Active Medications Allergies and Adverse Reactions * Not Known Past Medical History * No Significant Medical History Immunization * Fluzone Intramuscular Injectable (Lot #: [id number]) - Administered on: 04/17/2013 Advance Directives * No Advance Directives available. Encounters * AUDIT 04/17/2013
--- OUTSIDE RECORDS SUMMARY | 2019-12-16 12:53 | XMS REPORT | Summary of Care ---
Author Author [facility] Organization [facility] Address Unknown Phone Unavailable Encounter NEGAR Cho(JOHN) [id number] Date(s): 11/27/19 - 11/27/19 [facility] [address] [place] [address]- [phone] Discharge Disposition: Home or Self Care Attending Physician: Richard Espinal MD Referring Physician: Richard Espinal MD Vital Signs No data available for this section Problem List No data available for this section Allergies, Adverse Reactions, Alerts No Known Allergies Medications Dotarem 376.9 mg /mL (0.5 mmol/mL) intravenous solution 0.1 mmol, 0.2 mL, Route: intra-ARTICULAR, Drug Form: SOLN, Dosing Weight 104.545 , kg, ONCE, GFR >/= 40 mL/min, Start date: 11/27/19 7:52:00 CDT, Stop date: 11/27/19 7:52:00 CDT, 0 Notes: (Same as: Dotarem) Start Date: 11/27/19 Stop Date: 11/27/19 Status: Completed Omnipaque 300 10 mL, Route: intra-ARTICULAR, Drug Form: SOLN, Dosing Weight 104.545, kg, ONCE, Start date: 11/27/19 7:52:00 CDT, Stop date: 11/27/19 7:52:00 CDT, 0 Notes: (Same as:Omnipaque 300).WASTE: F/P - Black; E - Municipal Trash Bin Start Date: 11/27/19 Stop Date: 11/27/19 Status: Completed Results No data available for this section Immunizations Given and Recorded Vaccine Date Status Refusal Reason diphtheria/pertussis, acel/tetanus adult 02/05/19 Given Procedures Procedure Date Related Diagnosis Body Site Status Cataract surgery Completed Laparoscopic repair of hernia Completed Repair of retina Completed Social History Social History Type Response Alcohol Never Smoking Status Never smoker; Ready to mcnulty ge: No; Concerns about tobacco use in household: No; Exposure to Tobacco Smoke None; Cig arette Smoking Last 365 Days No; Reg Smoking Cessation Counseling No entered on: 10/27/19 Assessment and Plan No data available for this section
--- OUTSIDE RECORDS SUMMARY | 2019-12-16 12:53 | XMS REPORT ---
Author Author LandonYESSY Organization Unknown Address Unknown Phone Care Team Providers Care Unix Developer Name Role Phone Loni Navarrete PP Unavailable Reason for Referral No Reason [...] * CloNIDine HCl 0.1 MG Oral Tablet; daily (Active) * VESIcare 5 MG Oral Tablet; TAKE 1 TABLET DAILY. (Active) Allergies and Adverse Reactions * No Known Drug Allergies (Active) Past Medical History * History of Rosacea (695.3); (Resolved) Immunization * Fluzone Intramuscular Injectable (Lot #: [id number]) - Administered on: 04/17/2013 * Zoster (Zostavax) - Administered on: 08/21/2011 Family History * Family history of Cancer (Active) Social History * Never A Smoker (Active) * Never Drank Alcohol (Active) Advance Directives * No Advance Directives available. Encounters * AUDIT 06/21/2013 * PRINCESS, Provider: CHAGO THAO, Status: Shay, Time: 9:00 AM 09/29/2013
--- OUTSIDE RECORDS SUMMARY | 2019-12-16 12:54 | XMS REPORT | Summary of Care ---
Author Author [facility] Organization [facility] Address Unknown Phone Unavailable Encounter NEGAR Cho(JOHN) [id number] Date(s): 02/05/19 - 02/05/19 [facility] [address] [place] [address]- Encounter Diagnosis Acute head injury without loss of consciousness (Discharge Diagnosis) - 02/05/19 Discharge Disposition: Home or Self Care Attending Physician: Ron Becerra MD Vital Signs Most recent to 1 2 oldest [Reference Range]: Height 193.04 cm (02/05/19 12:41 PM) Temperature Oral 98.1 DegF 98.1 DegF [96.4-99.1 DegF] (02/05/19 3:39 PM) (02/05/19 12:41 PM) Blood Pressure 168/88 mmHg 165/96 mmHg [90-140/60-90 mmHg] *HI* *HI* (02/05/19 3:39 PM) (02/05/19 12:41 PM) Respiratory Rate 18 BRMIN 18 BRMIN [14-20 BRMIN] (02/05/19 3:39 PM) (02/05/19 12:41 PM) Peripheral Pulse 67 bpm 83 bpm Rate [60-100 bpm] (02/05/19 3:39 PM) (02/05/19 12:41 PM) Weight 110 kg (02/05/19 12:41 PM) Body Mass Index 29.52 m2 (02/05/19 12:41 PM) Problem List No data available for this section Allergies, Adverse Reactions, Alerts No Known Allergies Medications tramadol 50 mg, Route: PO, Drug form: TAB, ONCE, Dosing Weight 110, kg, > 50 kg, Priority: STAT, Start date: 02/05/19 14:19:00 CDT, Stop date: 02/05/19 14:19:00 CDT Start Date: 02/05/19 Stop Date: 02/05/19 Status: Completed tramadol 50 mg oral tablet 50 mg = 1 tab, PO, BID, X 3 day, # 6 tab, 0 Refill(s) Start Date: 02/05/19 Stop Date: 02/08/19 Status: Ordered Results No data available for this section Immunizations Given and Recorded Vaccine Date Status Refusal Reason diphtheria/pertussis, acel/tetanus adult 02/05/19 Given Procedures Procedure Date Related Diagnosis Body Site Status Cataract surgery Completed Laparoscopic repair of hernia Completed Repair of retina Completed Social History Social History Type Response Alcohol Never Smoking Status Never smoker; Exposure to T obacco Smoke None; Cigarette Smoking Last 365 Days No; Reg Smoking Cessation Counseli ng No entered on: 02/05/19 Assessment and Plan No data available for this section
--- OUTSIDE RECORDS SUMMARY | 2019-12-16 12:54 | XMS REPORT | Summary of Care ---
Author Author [facility] Organization [facility] Address Unknown Phone Unavailable Encounter NEGAR Cho(JOHN) [id number] Date(s): 01/28/19 - 01/29/19 [facility] [address] [place] [address]- Discharge Disposition: Home or Self Care Attending Physician: Octavio Villa MD Admitting Physician: Octavio Villa MD Vital Signs 1 2 3 Most recent to oldest [Reference Range]: 193.04 cm (01/28/19 2:00 PM) 182.88 cm (01/28/19 7:30 AM) Height 97.8 DegF (01/29/19 11:51 AM) 98.2 DegF (01/29/19 8:02 AM) 98.6 DegF (01/28/19 11:10 PM) Temperature Oral [96.4-99.1 DegF] 130/70 mmHg (01/29/19 11:51 AM) 114/59 mmHg (01/29/19 8:02 AM) 120/62 mmHg (01/28/19 11:10 PM) Blood Pressure [90-140/60-90 mmHg] 18 BRMIN (01/29/19 11:51 AM) 18 BRMIN (01/29/19 8:02 AM) 18 BRMIN (01/28/19 11:10 PM) Respiratory Rate [14-20 BRMIN] 58 bpm *LOW* (01/29/19 11:51 AM) 54 bpm *LOW* (01/29/19 8:02 AM) 59 bpm *LOW* (01/28/19 11:10 PM) Peripheral Pulse Rate [60-100 bpm] 112.273 kg (01/28/19 2:00 PM) 113.636 kg (01/28/19 7:30 AM) Weight 30.13 m2 (01/28/19 2:00 PM) 33.98 m2 (01/28/19 7:30 AM) Body Mass Index Problem List No data available for this section Allergies, Adverse Reactions, Alerts No Known Allergies Medications acetaminophen 650 mg, 2 tab, Route: PO, Drug form: TAB, Q6H, Dosing Weight 113.636, kg, PRN Fo r Temp > 100.4 F, Start date: 01/28/19 12:07:00 CDT, Duration: 30 day, Stop date: 02/27/19 12:06:00 CDT, 0 Notes: Do not exceed 4 gm/day. (Same as: Tylenol) Start Date: 01/28/19 Stop Date: 01/29/19 Status: Discontinued amLODIPine 5 mg oral tablet 5 mg = 1 tab, PO, Daily, # 30 tab, 0 Refill(s) Start Date: 01/28/19 Status: Ordered Aspirin Enteric Coated 81 mg oral delayed release tablet 81 mg = 1 tab, PO, Daily, # 30 tab, 0 Refill(s), Pharmacy: [facility]/pharmacy #[id number] Start Date: 01/29/19 Stop Date: 02/28/19 Status: Ordered atorvastatin 40 mg oral tablet 40 mg = 1 tab, PO, Bedtime, # 30 tab, 0 Refill(s) Start Date: 01/28/19 Status: Ordered bisacodyl 10 mg, 1 supp, Route: RI, Drug form: SUPP, Daily, Dosing Weight 113.636, kg, PRN Constipation, Start date: 01/28/19 12:07:00 CDT, Duration: 30 day, Stop date: 0 02/27/19 12:06:00 CDT, 0 Notes: (Same As: Dulcolax, Bisco-Lax) Start Date: 01/28/19 Stop Date: 01/29/19 Status: Discontinued buPROPion 150 mg/24 hours (XL) oral tablet, extended release 150 mg = 1 tab, PO, Q24H, # 30 tab, 0 Refill(s) Start Date: 01/28/19 Status: Ordered Chloraseptic 1.4% spray 1 spray, Route: TOP, Q6H, Drug form: SPRY, PRN Sore Throat, Start date: 01/28/19 12:07:00 CDT, Duration: 30 day, Stop date: 02/27/19 12:06:00 CDT, 0 Notes: WASTE: F/P - Black; E - Municipal Trash Bin Start Date: 01/28/19 Stop Date: 01/29/19 Status: Discontinued cloNIDine 0.1 mg oral tablet 0.1 mg = 1 tab, PO, Daily, # 90 tab, 3 Refill(s) Start Date: 01/28/19 Status: Ordered Dextrose 50% Syringe 12.5 gm, 25 mL, Route: IVP, Drug Form: INJ, Dosing Weight 113.636, kg, PRN, PRN Blood Glucose Results, Start date: 01/28/19 12:07:00 CDT, Duration: 30 day, Stop date: 02/27/19 12:06:00 CDT, 0 Start Date: 01/28/19 Stop Date: 01/29/19 Status: Discontinued Dextrose 50% Syringe 25 gm, 50 mL, Route: IVP, Drug Form: INJ, Dosing Weight 113.636, kg, PRN, PRN Bl ood Glucose Results, Start date: 01/28/19 12:07:00 CDT, Duration: 30 day, Stop d ate: 02/27/19 12:06:00 CDT, 0 Start Date: 01/28/19 Stop Date: 01/29/19 Status: Discontinued diphenhydrAMINE 25 mg, 1 tab, Route: PO, Drug form: TAB, Q6H, Dosing Weight 113.636, kg, PRN as needed for allergy symptoms, Start date: 01/28/19 12:07:00 CDT, Duration: 30 day , Stop date: 02/27/19 12:06:00 CDT, 0 Start Date: 01/28/19 Stop Date: 01/29/19 Status: Discontinued docusate 100 mg, 1 cap, Route: PO, Drug form: CAP, BID, Dosing Weight 113.636, kg, PRN as needed for constipation, Start date: 01/28/19 12:07:00 CDT, Duration: 30 day, S top date: 02/27/19 12:06:00 CDT, 0 Notes: (Same as: Colace) (Do Not Crush) Start Date: 01/28/19 Stop Date: 01/29/19 Status: Discontinued DuoNeb inhalation solution 3 ml, Route: NEB, Drug Form: SOLN, Dosing Weight 113.636, kg, PRN, PRN Respirato ry Pathway, Start date: 01/28/19 12:07:00 CDT, Duration: 30 day, Stop date: 02/13 12/01 12:06:00 CDT, 0 Notes: (Same as: Duoneb) Start Date: 01/28/19 Stop Date: 01/28/19 Status: Discontinued glucagon 1 mg, Route: IM, Drug form: PDR/INJ, PRN, Dosing Weight 113.636, kg, PRN Blood G lucose Results, Start date: 01/28/19 12:07:00 CDT, Duration: 30 day, Stop date: 02/27/19 12:06:00 CDT, 0 Start Date: 01/28/19 Stop Date: 01/29/19 Status: Discontinued hydrALAZINE 10 mg, 0.5 mL, Route: IVP, Drug form: INJ, Q4H, Dosing Weight 113.636, kg, PRN H ypertension, Priority: Routine, Start date: 01/28/19 12:07:00 CDT, Duration: 30 day, Stop date: 02/27/19 12:06:00 CDT, 0 Notes: (Same as: Apresoline)Push over 5 minutes Start Date: 01/28/19 Stop Date: 01/29/19 Status: Discontinued levothyroxine 75 mcg (0.075 mg) oral tablet 75 microgram = 1 tab, PO, Daily, # 30 tab, 0 Refill(s) Start Date: 01/28/19 Status: Ordered lisinopril 40 mg oral tablet 40 mg = 1 tab, PO, Daily, # 30 tab, 0 Refill(s) Start Date: 01/28/19 Status: Ordered Lovenox 40 mg, 0.4 mL, Route: SUB-Q, Drug form: INJ, [id number], Dosing Weight 112.273, kg , Start date: 01/28/19 20:00:00 CDT, Duration: 30 day, Stop date: 02/26/19 20:00 :00 CDT, 0 Notes: (Same as: Lovenox) Start Date: 01/28/19 Stop Date: 01/29/19 Status: Discontinued Maalox Advanced Regular Strength SUSP 30 mL, Route: PO, Drug Form: SUSP, Dosing Weight 113.636, kg, QID-After Meals, P RN as needed for indigestion, Routine, Start date: 01/28/19 12:07:00 CDT, Durati on: 30 day, Stop date: 02/27/19 12:06:00 CDT, 0 Notes: (aluminum hydroxide-magnesium hyd-simethicone [phone]/5ml 30 ml ud S US) Start Date: 01/28/19 Stop Date: 01/29/19 Status: Discontinued meclizine 25 mg, 1 tab, Route: PO, Drug form: TAB, TID, Dosing Weight 113.636, kg, PRN Diz ziness, Start date: 01/28/19 13:04:00 CDT, Duration: 30 day, Stop date: 02/27/19 13:03:00 CDT, 0 Notes: (Same as: Antivert) Start Date: 01/28/19 Stop Date: 01/29/19 Status: Discontinued meclizine 25 mg oral tablet 25 mg = 1 tab, PO, TID, PRN Dizziness, # 20 tab, 0 Refill(s), Pharmacy: [facility] #[id number] Start Date: 01/29/19 Status: Ordered melatonin 3 mg, 1 tab, Route: PO, Drug form: TAB, Bedtime, Dosing Weight 113.636, kg, PRN Insomnia, Start date: 01/28/19 12:07:00 CDT, Duration: 30 day, Stop date: 12:06:00 CDT, 0 Notes: (Same as: Melatonin) Start Date: 01/28/19 Stop Date: 01/29/19 Status: Discontinued metoprolol extended release 50 mg, PO, Daily, 0 Refill(s) Start Date: 01/28/19 Status: Ordered morphine Sulfate 2 mg, 1 mL, Route: IVP, Drug form: INJ, Q4H, Dosing Weight 113.636, kg, PRN Pain Score 7-10, Start date: 01/28/19 12:07:00 CDT, Duration: 30 day, Stop date: 12:06:00 CDT, 0 Notes: (Same as:MORPhine Sulfate) Start Date: 01/28/19 Stop Date: 01/29/19 Status: Discontinued Mucinex 600 mg, 1 tab, Route: PO, Drug form: ERTAB, Q12H, Dosing Weight 113.636, kg, PRN Congestion, Start date: 01/28/19 12:07:00 CDT, Duration: 30 day, Stop date: 12:06:00 CDT, 0 Notes: (Same as: Guaifenesin LA, Humibid LA, Mucinex)"Do Not Crush" Take medica tion with plenty of water. Start Date: 01/28/19 Stop Date: 01/29/19 Status: Discontinued nicotine 21 mg, 1 patch, Route: TOP, Drug form: ERFILM, Daily, Dosing Weight 113.636, kg, PRN as needed for smoking cessation, Start date: 01/28/19 12:07:00 CDT, Duratio n: 30 day, Stop date: 02/27/19 12:06:00 CDT, 0 Notes: (Same as: Habitrol)"Remove old patch before application of new patch"WAST E: F/P - P Waste Black; E - P Waste Black Start Date: 01/28/19 Stop Date: 01/29/19 Status: Discontinued Sheffield 5/325 oral tablet 1 tab, Route: PO, Drug Form: TAB, Dosing Weight 113.636, kg, Q6H, PRN Pain Score 1-3, Start date: 01/28/19 12:07:00 CDT, Duration: 30 day, Stop date: 02/27/19 1 2:06:00 CDT, 0 Notes: (Same as: Sheffield 325/5) Do not exceed 4gm/day of acetaminophen. Start Date: 01/28/19 Stop Date: 01/29/19 Status: Discontinued ondansetron 4 mg, 2 mL, Route: IVP, Drug form: INJ, Q6H, Dosing Weight 113.636, kg, PRN Naus ea & Vomiting, Start date: 01/28/19 12:07:00 CDT, Duration: 30 day, Stop date: 02/27/19 12:06:00 CDT, 0 Notes: (Same as: Zofran) MEDICATION WASTE Product Size: 4 mgProduct Was lisa: ___ mg Start Date: 01/28/19 Stop Date: 01/29/19 Status: Discontinued polyethylene glycol 3350 17 gm, 1 pkt, Route: PO, Drug form: PWDR, Daily, Dosing Weight 113.636, kg, PRN Constipation, Start date: 01/28/19 12:07:00 CDT, Duration: 30 day, Stop date: 12:06:00 CDT, 0 Notes: Dissolve in 8 oz of water or juice.(Same as: Miralax) Start Date: 01/28/19 Stop Date: 01/29/19 Status: Discontinued Protonix 40 mg, 1 tab, Route: PO, Drug form: ECTAB, Daily, Dosing Weight 113.636, kg, Sta rt date: 01/29/19 9:00:00 CDT, Duration: 30 day, Stop date: 02/27/19 9:00:00 CDT , 0 Notes: Tablet should not be chewed or crushed.(Same as: Protonix) Start Date: 01/29/19 Stop Date: 01/29/19 Status: Discontinued remove patch 1 patch, Route: TOP, Drug form: ERFILM, ONCE, Start date: 01/31/19 13:08:00 CDT, Stop date: 01/31/19 13:08:00 CDT, 0 Start Date: 01/31/19 Stop Date: 01/29/19 Status: Canceled Robitussin-AC oral syrup 10 ml, Route: PO, Drug Form: LIQ, Dosing Weight 113.636, kg, Q4H, PRN Cough/Marquis estion, Start date: 01/28/19 12:07:00 CDT, Duration: 30 day, Stop date: 02/27/19 12:06:00 CDT, 0 Notes: (Same As: Robitussin AC) Start Date: 01/28/19 Stop Date: 01/29/19 Status: Discontinued Saline Flush 0.9% 10 mL, Route: IVP, Drug Form: INJ, Dosing Weight 113.636, kg, PRN, PRN Line Flus h, Start date: 01/28/19 8:00:00 CDT, Duration: 30 day, Stop date: 02/27/19 7:59: 00 CDT, 0 Notes: Same as: BD Posiflush Sterile Start Date: 01/28/19 Stop Date: 01/28/19 Status: Discontinued scopolamine 1.5 mg transdermal film 1 patch, Route: TOP, Drug Form: ERFILM, Dosing Weight 113.636, kg, ONCE, Start d ate: 01/28/19 13:04:00 CDT, Stop date: 01/28/19 13:04:00 CDT, 0 Notes: Change patch every 72 hours (Same as: Transderm-Scop) Start Date: 01/28/19 Stop Date: 01/28/19 Status: Completed SEROquel 25 mg, 1 tab, Route: PO, Drug form: TAB, BID, Dosing Weight 113.636, kg, PRN Meme tation, Start date: 01/28/19 12:07:00 CDT, Duration: 30 day, Stop date: 02/27/19 12:06:00 CDT, 0 Notes: (Same as: SEROquel) Start Date: 01/28/19 Stop Date: 01/29/19 Status: Discontinued simethicone 80 mg, 1 tab, Route: CHEW, Drug form: CHEWTAB, QID-After Meals, Dosing Weight 11 3.636, kg, PRN as needed for gas, Start date: 01/28/19 12:07:00 CDT, Duration: 3 0 day, Stop date: 02/27/19 12:06:00 CDT, 0 Notes: (Same as: Mylicon) Start Date: 01/28/19 Stop Date: 01/29/19 Status: Discontinued Sodium Chloride 0.9% (Bolus) IV 1,000 mL, 1000 ml/hr, Infuse Over: 1 hr, Route: IV, 1,000, Drug form: INJ, ONCE, Priority: STAT, Dosing Weight 113.636 kg, Start date: 01/28/19 8:00:00 CDT, Stop date: 01/28/19 8:00:00 CDT, 0 Start Date: 01/28/19 Stop Date: 01/28/19 Status: Completed Tessalon Perles 100 mg, 1 cap, Route: PO, Drug form: CAP, TID, Dosing Weight 113.636, kg, PRN Co ugh, Start date: 01/28/19 12:07:00 CDT, Duration: 30 day, Stop date: 02/27/19 12 :06:00 CDT, 0 Notes: (Same As: Taran Norris)"Do Not Crush" Start Date: 01/28/19 Stop Date: 01/29/19 Status: Discontinued trazodone 50 mg, 1 tab, Route: PO, Drug form: TAB, Bedtime, Dosing Weight 113.636, kg, PRN Insomnia, Start date: 01/28/19 12:07:00 CDT, Duration: 30 day, Stop date: 02/27 12:06:00 CDT, 0 Notes: (Same As: Alton) Start Date: 01/28/19 Stop Date: 01/29/19 Status: Discontinued Vitamin D3 2000 intl units oral capsule 2,000 IntlUnit = 1 cap, PO, Daily, # 100 cap, 3 Refill(s) Start Date: 01/28/19 Status: Ordered Results 1 2 3 Most recent to oldest [Reference Range]: 5.9 K/CMM (01/28/19 8:09 AM) Neutrophils # [1.5-8.1 K/CMM] 0.6 K/CMM *LOW* (01/28/19 8:09 AM) Lymphocytes # [1.0-5.5 K/CMM] 0.5 K/CMM (01/28/19 8:09 AM) Monocytes # [0.0-0.8 K/CMM] 0.2 K/CMM (01/28/19 8:09 AM) Eosinophils # [0.0-0.5 K/CMM] 25 pg/mL (01/28/19 8:09 AM) BNP [<=100 pg/mL] 74 mL/min/1.73m2 1 *NA* (01/29/19 3:21 AM) 61 mL/min/1.73m2 2 *NA* (01/28/19 8:09 AM) eGFR 7.4 mEq/L *LOW* (01/29/19 3:21 AM) 12.7 mEq/L (01/28/19 8:09 AM) AGAP [10.0-20.0 mEq/L] 0.3 % (01/28/19 8:09 AM) Basophils [0.0-1.0 %] 10 mg/dL (01/29/19 3:21 AM) 11 mg/dL (01/28/19 8:09 AM) BUN [7-22 mg/dL] 8.4 mg/dL *LOW* (01/29/19 3:21 AM) 8.0 mg/dL *LOW* (01/28/19 8:09 AM) Calcium Lvl [8.5-10.5 mg/dL] 2.61 *LOW* (01/29/19 3:21 AM) CHD Risk [4.00-7.30] 99 mg/dL (01/29/19 3:21 AM) Chol [<=199 mg/dL] 110 mEq/L *HI* (01/29/19 3:21 AM) 108 mEq/L (01/28/19 8:09 AM) Chloride Lvl [95-109 mEq/L] 26 mEq/L (01/29/19 3:21 AM) 26 mEq/L (01/28/19 8:09 AM) CO2 [24-32 mEq/L] 0.98 mg/dL (01/29/19 3:21 AM) 1.15 mg/dL (01/28/19 8:09 AM) Creatinine Lvl [0.50-1.40 mg/dL] 2.6 % (01/28/19 8:09 AM) Eosinophils [0.0-4.0 %] 96 mg/dL (01/29/19 3: AM) 139 mg/dL *HI* (01/28/19 8:09 AM) Glucose Lvl [70-99 mg/dL] 35.3 % *LOW* (01/29/19 3:21 AM) 37.3 % *LOW* (01/28/19 8:09 AM) Hct [42.0-54.0 %] 38 mg/dL *LOW* (01/29/19 3:21 AM) HDL [>=61 mg/dL] 12.2 g/dL *LOW* (01/29/19 3:21 AM) 12.6 g/dL *LOW* (01/28/19 8:09 AM) Hgb [14.0-18.0 g/dL] 6.2 % *HI* (01/29/19 3:21 AM) Hgb A1C [<=5.6 %] 4.4 mEq/L (01/29/19 3:21 AM) 3.7 mEq/L (01/28/19 8:09 AM) Potassium Lvl [3.5-5.1 mEq/L] 42 mg/dL (01/29/19 3:21 AM) LDL (Calculated) [<=99 mg/dL] 8.8 % *LOW* (01/28/19 8:09 AM) Lymphocytes [20.0-40.0 %] 30.6 pg (01/29/19 3:21 AM) 30.3 pg (01/28/19 8:09 AM) MCH [27.0-31.0 pg] 34.6 g/dL (01/29/19 3:21 AM) 33.9 g/dL (01/28/19 8:09 AM) MCHC [32.0-36.0 g/dL] 88.4 fL (01/29/19 3:21 AM) 89.3 fL (01/28/19 8:09 AM) MCV [80.0-94.0 fL] 7.1 % (01/28/19 8:09 AM) Monocytes [2.0-12.0 %] 7.9 fL (01/29/19 3:21 AM) 7.8 fL (01/28/19 8:09 AM) MPV [7.4-10.4 fL] 139 mEq/L (01/29/19 3:21 AM) 143 mEq/L (01/28/19 8:09 AM) Sodium Lvl [135-145 mEq/L] 142 K/CMM (01/29/19 3:21 AM) 132 K/CMM *LOW* (01/28/19 8:09 AM) Platelet [133-450 K/CMM] 81.2 % *HI* (01/28/19 8:09 AM) Segs [45.0-75.0 %] 3.99 M/CMM *LOW* (01/29/19 3:21 AM) 4.17 M/CMM *LOW* (01/28/19 8:09 AM) RBC [4.70-6.10 M/CMM] 13.3 % (01/29/19 3:21 AM) 13.4 % (01/28/19 8:09 AM) RDW [11.5-14.5 %] 95 mg/dL (01/29/19 3:21 AM) Trig [<=149 mg/dL] <0.02 ng/mL (01/28/19 10:52 PM) <0.02 ng/mL (01/28/19 4:30 PM) <0.02 ng/mL (01/28/19 8:09 AM) Troponin-I [0.00-0.40 ng/mL] 6.2 K/CMM (01/29/19 3:21 AM) 7.3 K/CMM (01/28/19 8:09 AM) WBC [3.7-10.4 K/CMM] 19 *NA* (01/29/19 3:21 AM) VLDL 1Result Comment: The eGFR is calculated using the [...] from the National Kidney Disease Education Program ( NKDEP) which additionally recommends that when the eGFR is used in patients with extremes of body mass index for purposes of drug dosing, the eGFR should be mul tiplied by the estimated BMI. 2Result Comment: The eGFR is calculated using the [...] from the National Kidney Disease Education Program ( NKDEP) which additionally recommends that when the eGFR is used in patients with extremes of body mass index for purposes of drug dosing, the eGFR should be mul tiplied by the estimated BMI. Immunizations No data available for this section Procedures Procedure Date Related Diagnosis Body Site Status Cataract surgery Completed Laparoscopic repair of hernia Completed Repair of retina Completed Social History Social History Type Response Alcohol Never Smoking Status Never smoker; Exposure to T obacco Smoke None; Cigarette Smoking Last 365 Days No; Reg Smoking Cessation Counseli ng No entered on: 01/28/19 Assessment and Plan Extracted from: Title: Discharge Summary * Author: Octavio Villa Date: 01/29/19 Discharge Information Disposition to home Condition stable Medications: See med reconciliation form Diet: Heart healthy Discharge Plan In the event of any worsening symptoms patient advised to come back to the ED for further evaluation Discharge summary to greater than 35 minutes Extracted from: Title: Cardiology Progress Note Author: Bryan Schroeder MD Date : 01/29/19 Impression and Plan Syncope Hypertension Type [...] given neg work up abo ve Extracted from: Title: Cardiology Consultation Author: Bryan Schroeder MD Date: [...] of care as per clinical course Extracted from: Title: General Admission H&P * Author: Octavio Villa MD Date: 01/28/19 Impression and Plan 1. Syncopal episode with dizziness 2. Hypertension Plan: MRI of the brain, carotid ultrasound, 2D echo, neurology and cardiology consultation, trend troponins Add scopolamine patch x1, meclizine as needed Resume same antihypertensive medications, PRN hydralazine PT/OT eval Lovenox for DVT prophylaxis
--- OUTSIDE RECORDS SUMMARY | 2019-12-16 12:54 | XMS REPORT | Summary of Care ---
Author Author [facility] Organization [facility] Address Unknown Phone Unavailable Encounter [facility] Marquis(FIN) [id number] Date(s): 10/27/19 - 10/27/19 [facility] [address] [place] [address]- Encounter Diagnosis Forehead abrasion (Discharge Diagnosis) - 10/27/19 Anterior shoulder dislocation (Discharge Diagnosis) - 10/27/19 Discharge Disposition: Home or Self Care Attending Physician: Roberto Kennedy DO Vital Signs 1 2 3 Most recent to oldest [Reference Range]: 187.96 cm (10/27/19 2:09 PM) Height 98.6 DegF (10/27/19 2:09 PM) Temperature Oral [96.4-99.1 DegF] 146/67 mmHg *HI* (10/27/19 7:06 PM) 133/75 mmHg (10/27/19 5:55 PM) 137/79 mmHg (10/27/19 5:48 PM) Blood Pressure [90-140/60-90 mmHg] 17 BRMIN (10/27/19 7:06 PM) 18 BRMIN (10/27/19 5:55 PM) 18 BRMIN (10/27/19 5:48 PM) Respiratory Rate [14-20 BRMIN] 73 bpm (10/27/19 4:17 PM) 67 bpm (10/27/19 4:10 PM) 93 bpm (10/27/19 4:05 PM) Peripheral Pulse Rate [60-100 bpm] 104.545 kg (10/27/19 2:09 PM) Weight 29.59 m2 (10/27/19 2:09 PM) Body Mass Index Problem List No data available for this section Allergies, Adverse Reactions, Alerts No Known Allergies Medications fentaNYL 50 microgram, Route: IVP, ONCE, Dosing Weight 104.545, kg, Priority: STAT, Start date: 10/27/19 17:57:00 CDT, Stop date: 10/27/19 17:57:00 CDT Start Date: 10/27/19 Stop Date: 10/27/19 Status: Completed morphine Sulfate 4 mg, 1 mL, Route: IVP, Drug form: SOLN, ONCE, Dosing Weight 104.545, kg, Priori ty: STAT, Start date: 10/27/19 14:24:00 CDT, Stop date: 10/27/19 14:24:00 CDT, 0 Notes: (Same as:MORPhine Sulfate) Start Date: 10/27/19 Stop Date: 10/27/19 Status: Completed ondansetron 4 mg, 2 mL, Route: IVP, Drug form: INJ, ONCE, Dosing Weight 104.545, kg, Priorit y: STAT, Start date: 10/27/19 14:24:00 CDT, Stop date: 10/27/19 14:24:00 CDT, 0 Notes: (Same as: Marci) MEDICATION WASTE Product Size: 4 mgProduct Was lisa: ___ mg Start Date: 10/27/19 Stop Date: 10/27/19 Status: Completed Tylenol with Codeine #3 oral tablet 1 tab, PO, Q6H, PRN Pain, X 7 day, # 11 tab, 0 Refill(s) Start Date: 10/27/19 Stop Date: 11/03/19 Status: Ordered Valium 5 mg, Route: IVP, Drug form: INJ, ONCE, Dosing Weight 104.545, kg, Priority: STA T, Start date: 10/27/19 17:57:00 CDT, Stop date: 10/27/19 17:57:00 CDT Start Date: 10/27/19 Stop Date: 10/27/19 Status: Completed Versed 5 mg, Route: IVP, ONCE, Dosing Weight 104.545, kg, Priority: STAT, Start date: 0 10/27/19 17:56:00 CDT, Stop date: 10/27/19 17:56:00 CDT Start Date: 10/27/19 Stop Date: 10/27/19 Status: Completed Results No data available for [...]
[2019-12-16] MEDS ORDERED: ONDANSETRON HCL INJ 2MG/ML 2ML 2 MG/ML VIAL IV STA (13:59)
[2019-12-16] MEDS ORDERED: PANTOPRAZOLE 40 MG 10ML VIAL IV STA (13:59)
[2019-12-16] MEDS ORDERED: SODIUM CHLORIDE 0.9% 1000ML 1,000 ML IV SCH (14:45)
[2019-12-16] MEDS ORDERED: ONDANSETRON HCL INJ 2MG/ML 2ML 2 MG/ML VIAL IV PRN (14:45)
[2019-12-16 14:55] LABS: BASOPHILS % 0.6 % (0.0-1.0); EOSINOPHILS # (AUTO) 0.1 (0.0-0.4); EOSINOPHILS % 1.1 % (0.0-6.0); HEMATOCRIT 40.9 % (38.2-49.6); HEMOGLOBIN 13.3 g/dL (14.0-18.0); LYMPHOCYTES # (AUTO) 1.2 (1.0-3.2); LYMPHOCYTES % 17.7 % (18.0-39.1); MEAN CORPUSCULAR HEMOGLOBIN 29.8 pg (28-32); MEAN CORPUSCULAR HGB CONC 32.5 g/dL (31-35); MEAN CORPUSCULAR VOLUME 91.7 fL (81-99); MONOCYTES # (AUTO) 0.4 (0.2-0.8); MONOCYTES % 6.6 % (4.4-11.3); NEUTROPHILS # (AUTO) 4.8 (2.1-6.9); NEUTROPHILS % 73.5 % (38.7-80.0); PLATELET COUNT 176 x10e3/uL (140-360); RED BLOOD COUNT 4.46 x10e6/uL (4.3-5.7); RED CELL DISTRIBUTION WIDTH 12.9 % (11.7-14.4)
--- OUTSIDE RECORDS SUMMARY | 2019-12-16 14:58 | XMS REPORT | Continuity of Care Document ---
Author Author Max Bradshaw [facility]Visit YESSY [facility] [employer] Address Unknown Phone Unavailable Care Team Providers Care Strawhat Inspector And Packer Name Role Phone [facility] Unavailable Un available Problems Problem Status Onset Date Classification Date Reported Comments Source LEFT SHOULDER Active 12/04/2019 [facility] DX: S43.005A=UNSPECIFIED DISLOCATION OF Active 11/11/2019 [facility] Abrasion of other part of head, initial encounter 10/27/2019 10/29/2019 [facility] Anterior dislocation of unspecified mari leslye, initial encounter 10/27/2019 10/29/2019 [facility] SHOULDER PAIN OR INJURY Active 10/27/2019 [facility] Unspecified injury of head, initial encounter 02/05/2019 02/07/2019 [facility] EYE PAIN Active 02/05/2019 [facility] NEAR SYNCOPE Active 01/28/2019 [facility] WEAKNESS Active 01/28/2019 [facility] Hypertension Active 09/29/2013 [facility] Hyperlipidemia Active 09/29/2013 [facility] Type 2 Diabetes Mellitus Active 09/29/2013 [facility] Urine Tests Nonspecific Abnormal Findings Active 09/29/2013 [facility] Hyperactivity Of The Bladder A ctive 09/29/2013 [facility] 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 WASTE: F/P - Black; E - Municipal Trash Bin Inactive 11/27/2019 [facility] Dotarem 376.9 mg /mL (0.5 mmol/mL) intravenous solutio n Notes: (Same as: Dotarem) Inactive 11/27/2019 [facility] Valium 5 mg, Route: IVP, Drug form: INJ, ONCE, Dosing Weight 104.545, kg, Priority: STAT, Start date: 10/27/19 17:57:00 CDT, Stop date: 10/27/19 17:57:00 CDT Inactive 10/27/2019 [facility] Fentanyl 50 microgram, Route: IVP, ONCE, Dosing Weight 104.545, kg, Priority: STAT, Start date: 10/27/19 17:57:00 CDT, Stop date: 10/27/19 17:57:00 CDT Inactive 10/27/2019 [facility] Versed 5 mg, Route: IVP, ONCE, Dosing Weight 104.545, kg, Priority: STAT, Start date: 10/27/19 17:56:00 CDT, Stop date: 10/27/19 17:56:00 CDT Inactive 10/27/2019 [facility] Acetaminophen 300 MG / Codeine Phosphate 30 MG Oral Tablet [Tylenol with Codeine #3] 1 tab, PO, Q6H, PRN Pain, X 7 day, # 11 tab, 0 Refill(s) Active 10/27/2019 [facility] Ondansetron Notes: (Same as: [place] orona) MEDICATION WASTE Product Size: 4 mg Product Wasted: ___ mg Inactive 10/27/2019 [facility] Morphine Notes: (Same as:MORPh ine Sulfate) Inactive 10/27/2019 [facility] tramadol hydrochloride 50 MG Oral Tablet 50 mg = 1 tab, PO, BID, X 3 day, # 6 tab, 0 Refill(s) Active 02/05/2019 [facility] Tramadol 50 kg, Priority: STA T, Start date: 02/05/19 14:19:00 CDT, Stop date: 02/05/19 14:19:00 CDT Inactive 02/05/2019 [facility] remove patch 1 patch, Route: T OP, Drug form: ERFILM, ONCE, Start date: 01/31/19 13:08:00 CDT, Stop date: 01/31/19 13:08:00 CDT, 0 No Longer Active 01/31/2019 [facility] Aspirin Enteric Coated 81 mg oral delaye d release tablet 81 mg = 1 tab, PO, Daily, # 30 tab, 0 Re fill(s), Pharmacy: [facility]/pharmacy #[id number] Active 01/29/2019 [facility] meclizine 25 mg oral tablet 25 mg = 1 tab, PO, TID, PRN Dizziness, # 20 tab, 0 Refill(s), Pharmacy: [facility]/pharmacy #[id number] Active 01/29/2019 [facility] Protonix Notes: Tablet should not be chewed or crushed. (Same as: Protonix) Inactive 01/29/2019 [facility] Lovenox Notes: (Same as: Loven ox) No Longer Active 01/29/2019 [facility] lisinopril 40 mg oral tablet 4 0 mg = 1 tab, PO, Daily, # 30 tab, 0 Refill(s) Active 01/28/2019 [facility] levothyroxine 75 mcg (0.075 mg) oral tablet 75 microgram = 1 tab, PO, Daily, # 30 tab, 0 Refill(s) Active 01/28/2019 [facility] atorvastatin 40 mg oral tablet 40 mg = 1 tab, PO, Bedtime, # 30 tab, 0 Refill(s) Active 01/28/2019 [facility] Vitamin D3 2000 intl units oral capsule 2,000 IntlUnit = 1 cap, PO, Daily, # 100 cap, 3 Refill(s) Active 01/28/2019 [facility] 24 HR Bupropion Hydrochloride 150 MG Ext ended Release Tablet 150 mg = 1 tab, PO, Q24H, # 30 tab, 0 Refill(s) Active 01/28/2019 [facility] Clonidine Hydrochloride 0.1 MG Oral Tablet 0.1 mg = 1 tab, PO, Daily, # 90 tab, 3 Refill(s) Active 01/28/2019 [facility] metoprolol extended release 50 mg, PO, Daily, 0 Refill(s) Active 01/28/2019 [facility] amLODIPine 5 mg oral tablet 5 mg = 1 tab, PO, Daily, # 30 tab, 0 Refill(s) Active 01/28/2019 [facility] Meclizine Notes: (Same as: Ant ivert) No Longer Active 01/28/2019 [facility] 72 HR Scopolamine 0.0139 MG/HR Transdermal Patch Notes: Change patch every 72 hours (Same as: Transderm-Scop) Inactive 01/28/2019 [facility] Nicotine Notes: (Same as: Conrado almodovar) "Remove old patch before application of new patch" WASTE: F/P - P Waste Black; E - P Waste Black No Longer Active 01/28/2019 [facility] Seroquel Notes: (Same as: SERO quel) No Longer Active 01/28/2019 [facility] Hydralazine Notes: (Same as: A presoline) Push over 5 minutes No Longer Active 01/28/2019 [facility] Acetaminophen 325 MG / Hydrocodone Hemalatha trate 5 MG Oral Tablet [[place] 5/325] Notes: (Same as: [place] 325/5) Do not ex ceed 4gm/day of acetaminophen. No Longer Activ e 01/28/2019 [facility] Maalox Advanced Regular Strength SUSP Notes: (aluminum hydroxide-magnesium hyd-simethicone [phone]/5ml 30 ml ud RODGER) No Longer Active 01/28/2019 [facility] Albuterol 0.833 MG/ML / Ipratropium Brom lb 0.167 MG/ML Inhalant Solution [DuoNeb] Notes: (Same as: Duoneb) Inactive 01/28/2019 [facility] phenol Notes: WASTE: F/P - Clark ck; E - Municipal Trash Bin No Longer Active 01/28/2019 [facility] Mucinex Notes: (Same as: Guaif enesin LA, Humibid LA, Mucinex) "Do Not Crush" Take medication with plenty of water. No Longer Active 01/28/2019 [facility] Simethicone Notes: (Same as: Megan ylicon) No Longer Active 01/28/2019 [facility] Morphine Notes: (Same as:MORPh ine Sulfate) No Longer Active 01/28/2019 [facility] Robitussin-AC oral syrup Notes : (Same As: Robitussin AC) No Longer Active 01/28/2019 [facility] Tessalon Perles Notes: (Same A s: Azaleaon Perles) "Do Not Crush" No Longer Active 01/28/2019 [facility] Acetaminophen Notes: Do not ex ceed 4 gm/day. (Same as: Tylenol) No Longer Active 01/28/2019 [facility] Dextrose 50% Syringe 12.5 gm, 25 mL, Route: IVP, Drug Form: INJ, Dosing Weight 113.636, kg, PRN, PRN Blood Glucose Results, Start date: 01/28/19 12:07:00 CDT, Duration: 30 day, Stop date: 02/27/19 12:06:00 CDT, 0 No Longer Active 01/28/2019 [facility] Melatonin Notes: (Same as: Suzanne atonin) No Longer Active 01/28/2019 [facility] Trazodone Notes: (Same As: Tai yrel) No Longer Active 01/28/2019 [facility] Ondansetron Notes: (Same as: [place] orona) MEDICATION WASTE Product Size: 4 mg Product Wasted: ___ mg No Longer Active 01/28/2019 [facility] Diphenhydramine 25 mg, 1 tab, Route: PO, Drug form: TAB, Q6H, Dosing Weight 113.636, kg, PRN as needed for allergy symptoms, Start date: 01/28/19 12:07:00 CDT, Duration: 30 day, Stop date: 02/27/19 12:06:00 CDT, 0 No Longer Active 01/28/2019 [facility] POLYETHYLENE GLYCOL 3350 Notes : Dissolve in 8 oz of water or juice. (Same as: Miralax) No Longer Active 01/28/2019 [facility] Docusate Notes: (Same as: Cola ce) (Do Not Crush) No Longer Active 01/28/2019 [facility] Glucagon 1 mg, Route: IM, Drug form: PDR/INJ, PRN, Dosing Weight 113.636, kg, PRN Blood Glucose Results, Start date: 01/28/19 12:07:00 CDT, Duration: 30 day, Stop date: 02/27/19 12:06:00 CDT, 0 No Longer Active 01/28/2019 [facility] Bisacodyl Notes: (Same As: Dul colax, Bisco-Lax) No Longer Active 01/28/2019 [facility] Saline Flush 0.9% Notes: Same as: BD Posiflush Sterile Inactive 01/28/2019 [facility] Sodium Chloride 0.9% (Bolus) IV 1,000 mL, 1000 ml/hr, Infuse Over: 1 hr, Route: IV, 1,000, Drug form: INJ, ONCE, Priority: STAT, Dosing Weight 113.636 kg, Start date: 01/28/19 8:00:00 CDT, Stop date: 01/28/19 8:00:00 CDT, 0 Inactive 01/28/2019 [facility] Lisinopril 40 MG Oral Tablet ; Start Date: 05/31/2013; End Date: (Active) Active 05/31/2013 [facility] CloNIDine HCl 0.1 MG Oral Tablet ; Start Date: ; End Date: (Active) Inactive [facility] Atorvastatin Calcium 40 MG Oral Tablet ; Start Date: ; End Date: (Active) Inactive [facility] No Active Medications No Activ e Medications Active [facility] Lipitor 40 MG Oral Tablet (Ac tive) Active [facility] CloNIDine HCl 0.1 MG Oral Tablet (Active) Active [facility] VESIcare 5 MG Oral Tablet (Ac tive) Active [facility] Allergies, Adverse Reactions, Alerts Substance Category Reaction Severity Reaction type Status Date Reported Comments Source Not Known [facility] No Known Drug Allergies drug a llergy drug aller gy Active [facility] Immunizations Immunization Date Given Site Status Last Updated Comments Source diphtheria/pertussis, acel/tetanus adult 02/05/2019 Left deltoid completed [facility] Fluzone Intramuscular Injectable 04/17/2013 completed [facility] Zoster (Zostavax) 08/21/2011 completed [facility] Results Order Name Results Value Reference Range Date Interpretation Comments Source CHEM PANEL Glucose Lvl 96 70 - 99 01/29/2019 [facility] CHEM PANEL BUN 10 7 - 22 01/29/2019 [facility] CHEM PANEL Potassium Lvl 4.4 3.5 - 5.1 01/29/2019 [facility] CHEM PANEL Creatinine Lvl 0.98 0.50 - 1.40 01/29/2019 [facility] CHEM PANEL Sodium Lvl 139 135 - 145 01/29/2019 [facility] CHEM PANEL Calcium Lvl 8.4 8.5 - 10.5 01/29/2019 [facility] CHEM PANEL AGAP 7.4 10.0 - 20.0 01/29/2019 [facility] CHEM PANEL Chloride Lvl 110 95 - 109 01/29/2019 [facility] CHEM PANEL CO2 26 24 - 32 01/29/2019 [facility] CHEM PANEL eGFR 74 01/29/2019 Result Comment: [...] should be multiplied by the estimated BMI. [facility] HEMATOLOGY MPV 7.9 7.4 - 10.4 01/29/2019 [facility] HEMATOLOGY Hct 35.3 42.0 - 54.0 01/29/2019 [facility] HEMATOLOGY Hgb 12.2 14.0 - 18.0 01/29/2019 [facility] HEMATOLOGY RBC 3.99 4.70 - 6.10 01/29/2019 [facility] HEMATOLOGY Platelet 142 133 - 450 01/29/2019 [facility] HEMATOLOGY RDW 13.3 11.5 - 14.5 01/29/2019 [facility] HEMATOLOGY MCHC 34.6 32.0 - 36.0 01/29/2019 [facility] MCH 30.6 27.0 - 31.0 01/29/2019 [facility] HEMATOLOGY MCV 88.4 80.0 - 94.0 01/29/2019 [facility] HEMATOLOGY WBC 6.2 3.7 - 10.4 01/29/2019 [facility] LIPIDS CHD Risk 2.61 4.00 - 7.30 01/29/2019 [facility] LIPIDS Chol 99 <=199 mg/dL 01/29/2019 [facility] LIPIDS VLDL 19 01/29/2019 [facility] LIPIDS LDL (Calculated) 42 <=99 mg/dL 01/29/2019 [facility] LIPIDS HDL 38 >=61 mg/dL 01/29/2019 [facility] LIPIDS Trig 95 <=149 mg/dL 01/29/2019 [facility] SPECIAL CHEMISTRY Hgb A1C 6.2 <=5.6 % 01/29/2019 [facility] CARDIAC ENZYMES Troponin-I <0.02 0.00 - 0.40 01/29/2019 [facility] CARDIAC ENZYMES Troponin-I <0.02 0.00 - 0.40 01/28/2019 [facility] CARDIAC ENZYMES Troponin-I <0.02 0.00 - 0.40 01/28/2019 [facility] CARDIAC ENZYMES BNP 25 <=100 pg/mL 01/28/2019 [facility] ELECTROLYTES AGAP 12.7 10.0 - 20.0 01/28/2019 [facility] ELECTROLYTES eGFR 61 01/28/2019 Result Comment: The [...] should be multiplied by the estimated BMI. [facility] ELECTROLYTES Sodium Lvl 143 135 - 145 01/28/2019 [facility] ELECTROLYTES Chloride Lvl 108 95 - 109 01/28/2019 [facility] ELECTROLYTES Calcium Lvl 8.0 8.5 - 10.5 01/28/2019 [facility] ELECTROLYTES CO2 26 24 - 32 01/28/2019 [facility] ELECTROLYTES Potassium Lvl 3.7 3.5 - 5.1 01/28/2019 [facility] ELECTROLYTES Glucose Lvl 139 70 - 99 01/28/2019 [facility] ELECTROLYTES BUN 11 7 - 22 01/28/2019 [facility] ELECTROLYTES Creatinine Lvl 1.1 5 0.50 - 1.40 01/28/2019 [facility] HEMATOLOGY Eosinophils # 0.2 0.0 - 0.5 01/28/2019 [facility] HEMATOLOGY Basophils 0.3 0.0 - 1.0 01/28/2019 [facility] Lymphocytes 8.8 20.0 - 40.0 01/28/2019 [facility] Monocytes 7.1 2.0 - 12.0 01/28/2019 [facility] HEMATOLOGY Eosinophils 2.6 0.0 - 4.0 01/28/2019 [facility] Monocytes # 0.5 0.0 - 0.8 01/28/2019 [facility] Lymphocytes # 0.6 1.0 - 5.5 01/28/2019 [facility] HEMATOLOGY Neutrophils # 5.9 1.5 - 8.1 01/28/2019 [facility] Segs 81.2 45.0 - 75.0 01/28/2019 [facility] MPV 7.8 7.4 - 10.4 01/28/2019 [facility] Platelet 132 133 - 450 01/28/2019 [facility] RDW 13.4 11.5 - 14.5 01/28/2019 [facility] MCHC 33.9 32.0 - 36.0 01/28/2019 [facility] MCH 30.3 27.0 - 31.0 01/28/2019 [facility] MCV 89.3 80.0 - 94.0 01/28/2019 [facility] Hct 37.3 42.0 - 54.0 01/28/2019 [facility] Hgb 12.6 14.0 - 18.0 01/28/2019 [facility] RBC 4.17 4.70 - 6.10 01/28/2019 [facility] WBC 7.3 3.7 - 10.4 01/28/2019 [facility] Pathology Reports No Data Provided for This [...] arthrosis. Leodan Barros MD On 11/27/2019 11:40:25; [id number] 11/27/2019 [facility] Shoulder arthrogram DX PROCEDU RE INFORMATION: Exam: [...] data. Sherman Hernandez MD On 11/27/2019 12:44:53; [id number] 11/27/2019 [facility] Shoulder series DX PROCEDURE I NFORMATION: Exam: [...] reduction.. Prema Elmore MD On 10/27/2019 18:13:02; [id number] 10/27/2019 [facility] Hand 2 views DX PROCEDURE INFO RMATION: [...] Collins MD On 10/27/2019 15:37:22; [id number] 10/27/2019 [facility] Trauma Brain wo contrast CT Ra diation [...] infarction. Duane Jefferson MD On 10/27/2019 15:43:48; [id number] 10/27/2019 [facility] Shoulder series DX PROCEDURE I NFORMATION: Exam: [...] changes. Solis Marcos MD On 10/27/2019 15:06:15; [id number] 10/27/2019 [facility] Spine cervical wo contrast CT (ER) Spine [...] to patient size -Use of iterative reconstruction [employer] ue CT Radiation Dose DLP 886.37 mGy-cm [...] subluxation. Advanced degenerative changes, midcervical spine. SL: [id number] 02/05/2019 [facility] Brain wo contrast CT Patient N kristyn: YESSY ARCINIEGA : 1940; Age: 78 years y/o Male MR: [id number] Study: Brain wo contrast CT 02/05/2019 12:51 [...] to patient size -Use of iterative reconstruction [employer] ue CT Radiation Dose DLP 1020 mGy-cm [...] of the brain should be considered. SL: [id number] 02/05/2019 [facility] Brain wo contrast MRI Clinical Indication: - [...] shift. Age-related involutional changes. SL: [id number] 01/28/2019 [facility] Carotid artery Doppler bilat US Patient Name: YESSY ARCINIEGA : 1940; Age: 78 years Male MR: [id number] Study: Carotid artery Doppler bilat US 01/28/2019 [...] occlusion High, low, or Variable undetectable SL: [id number] 01/28/2019 [facility] Chest 1view DX Clinical Indica tion: - syncope; Comparison: None FINDINGS: AP chest. No pleural effusion or focal consolidation. Normal heart size. Tortuous thoracic aorta. No acute osseous abnormality. IMPRESSION: No chest radiographic evidence of acute cardiopulmonary disease. SL: [id number] 01/28/2019 [facility] Consultation Notes No Data Provided for This Section Discharge Summaries No Data Provided for This Section History and Physicals No Data Provided for This Section Vital Signs Vital Sign Value Date Comments Source Respitory Rate 17 10/28/2019 [facility] Systolic (mm Hg) 146 10/28/2019 [facility] Diastolic (mm Hg) 67 10/28/2019 [facility] Respitory Rate 18 10/27/2019 [facility] Systolic (mm Hg) 133 10/27/2019 [facility] Diastolic (mm Hg) 75 10/27/2019 [facility] Respitory Rate 18 10/27/2019 [facility] Systolic (mm Hg) 137 10/27/2019 [facility] Diastolic (mm Hg) 79 10/27/2019 [facility] Heart Rate 73 10/27/2019 [facility] Heart Rate 67 10/27/2019 [facility] Heart Rate 93 10/27/2019 [facility] Height 187.96 cm 10/27/2019 [facility] BMI Calculated 29.59 10/27/2019 [facility] Weight 104.545 10/27/2019 [facility] Temperature Oral (F) 98.6 F 10/27/2019 [facility] Systolic (mm Hg) 168 02/05/2019 [facility] Diastolic (mm Hg) 88 02/05/2019 [facility] Respitory Rate 18 02/05/2019 [facility] Heart Rate 67 02/05/2019 [facility] Temperature Oral (F) 98.1 F 02/05/2019 [facility] BMI Calculated 29.52 02/05/2019 [facility] Weight 110 02/05/2019 [facility] Height 193.04 cm 02/05/2019 [facility] Heart Rate 83 02/05/2019 [facility] Systolic (mm Hg) 165 02/05/2019 [facility] Diastolic (mm Hg) 96 02/05/2019 [facility] Respitory Rate 18 02/05/2019 [facility] Temperature Oral (F) 98.1 F 02/05/2019 [facility] Systolic (mm Hg) 130 01/29/2019 [facility] Diastolic (mm Hg) 70 01/29/2019 [facility] Respitory Rate 18 01/29/2019 [facility] Heart Rate 58 01/29/2019 [facility] Temperature Oral (F) 97.8 F 01/29/2019 [facility] Temperature Oral (F) 98.2 F 01/29/2019 [facility] Systolic (mm Hg) 114 01/29/2019 [facility] Diastolic (mm Hg) 59 01/29/2019 [facility] Respitory Rate 18 01/29/2019 [facility] Heart Rate 54 01/29/2019 [facility] Respitory Rate 18 01/29/2019 [facility] Systolic (mm Hg) 120 01/29/2019 [facility] Diastolic (mm Hg) 62 01/29/2019 [facility] Heart Rate 59 01/29/2019 [facility] Temperature Oral (F) 98.6 F 01/29/2019 [facility] Height 193.04 cm 01/28/2019 [facility] BMI Calculated 30.13 01/28/2019 [facility] Weight 112.273 01/28/2019 [facility] Weight 113.636 01/28/2019 [facility] BMI Calculated 33.98 01/28/2019 [facility] Height 182.88 cm 01/28/2019 [facility] Encounters Location Location Details Encounter Type Encounter Number Reason For Visit Attending Provider ADM Date DC Date Status Source AUDIT [id number] 04/17/2013 04/17/2013 [facility] AUDIT [id number] 05/31/2013 05/31/2013 [facility] AUDIT [id number] 06/21/2013 06/21/2013 [facility] AUDIT [id number] 09/15/2013 09/15/2013 [facility] Rafael SÁNCHEZ art: CHAGO THAO, Status: Pen, Time: 9:00 AM [id number] 09/30/19 14 09/15/2013 [facility] AUDIT [id number] 09/29/2013 09/29/2013 [facility] Observation [id number] Octavio Villa 01/28/2019 01/29/2019 [facility] Emergency [id number] Ron Valerioeal 02/05/2019 02/05/2019 [facility] Emergency [id number] Roberto Kennedy 10/27/2019 10/28/2019 [facility] Outpatient [id number] Richard Mojica Jr 11/27/2019 11/28/2019 [facility] Procedures Procedure Code Date Perfomer Comments Source Cataract surgery [id number] [facility] Laparoscopic repair of hernia [id number] [facility] Repair of retina [id number] [facility] Assessment and Plan Assessment and Plan Date [...] PT/OT eval Lovenox for DVT prophylaxis 01/29/2019 [facility] Plan of Care Plan of Care Date Source [[facility]] CBC (INCLUDES DIFF/PLT) 09/29/2013 Routine[QL] CMP W/EGFR 09/29/2013 Routine[QL] LIPID PANEL 09/29/2013 Routine[QL] HEMOGLOBIN A1c 09/29/2013 Routine[QL] PSA, TOTAL 09/29/2013 Routine[[facility]] TSH, 3RD GENERATION W/REFLEX TO FT4 09/29/2013 RoutineHemoccult ICT 09/29/2013 Routine[QL] MICROALBUMIN, RANDOM URINE (W/CREATININE) 09/29/2013 Routine 09/29/2013 [facility] Social History Social History Date Source Social History TypeResponse Alcohol Never Smoking Status Never smoker; Ready to change: No; Concerns about tobacco use in household: No; Exposure to Tobacco Smoke None; Cigarette Smoking Last 365 Days No; Reg Smoking Cessation Counseling No entered on: 10/27/19 01/28/2019 Stephanie Never A Smoker (Active) Never Drank Alcohol (Active) Occupation: (Active) 09/29/2013 [facility] Family History Value Date S ource Family history of Cancer (Active) 09/29/2013 [facility] Family history of Cancer (Active) 09/15/2013 [facility] Family history of Cancer (Active) 06/21/2013 [facility] Advance Directives Order Name Results Value Date Source Advance Directives Advance Dir ectives No Advance Directives available. 09/29/2013 [facility] Advance Directives Advance Dir ectives No Advance Directives available. 09/15/2013 [facility] Advance Directives Advance Dir ectives No Advance Directives available. 06/21/2013 [facility] Advance Directives Advance Dir ectives No Advance Directives available. 05/31/2013 [facility] Advance Directives Advance Dir ectives No Advance Directives available. 04/17/2013 [facility] Functional Status No Data Provided for This Section
--- OUTSIDE RECORDS SUMMARY | 2019-12-16 14:58 | XMS REPORT | Continuity of Care Document ---
Author Author [facility] t Organization [facility] Address [address] [place] [address] Phone Unavailable Care Team Providers Care Clay Burner Name Role Phone Anatoly Mojica Jr Attphys Marisela Kennedy Attphys Thomas Becerra Attphys Arnol Villa Attphys Arnol Villa Admphys Problems Condition Name Condition Details Condition Category Status Onset Date Resolution Date Last Treatment Date Treating Clinician Comments Source LEFT SHOULDER LEFT SHOULDER Active 12/04/2019 [facility] [place] Diagnosis Active 2019-12-04 08:00:00 2019-12-15 08:26:00 [facility] Med ical [place] DX: S43.005A=UNSPECIFIED DISLOCATION OF DX: S43.005A=UNSPECIFIED DISLOCATION OF Active 11/11/2019 [facility] Active 2019-11-11 00:00:00 2019-11-27 07:42:00 [facility] SHOULDER PAIN OR INJURY SHOU LDER PAIN OR INJURY Active 10/27/2019 [facility] Active 2019-10-27 00:00:00 2019-10-27 15:01:00 [facility] EYE PAIN EYE PAIN Active 02/05/2019 [facility] Active 2019-02-05 00:00:00 2019-02-05 13:40:00 [facility] NEAR SYNCOPE NEAR SYNCOPE Active 01/28/2019 [facility] Active 2019-01-28 00:00:00 2019-01-29 15:09:00 [facility] WEAKNESS WEAK NESS Active 01/28/2019 [facility] Active 2019-01-28 00:00:00 2019-01-28 10:26:00 [facility] Hypertension Hype rtension Active 09/29/2013 [facility] Problem Active 2013-09-29 15:45:57 [facility] Hyperlipidemia Hype rlipidemia Active 09/29/2013 [facility] Problem Active 2013-09-29 15:45:57 [facility] Type 2 Diabetes Mellitus Type 2 Diabetes Mellitus Active 09/29/2013 [facility] Problem Active 2013-09-29 15:45: 57 [facility] Urine Tests Nonspecific Abnormal Findings Urine Tests Nonspecific Abnormal Findings Active 09/29/2013 [facility] Problem Active 2013-09-29 15:45:57 [facility] Hyperactivity Of The Bladder H yperactivity Of The Bladder Active 09/29/2013 [facility] Problem Active 2 15:45:57 [facility] 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 [facility] Problem Active 2013-09-29 15:45:57 [facility] Umbilical Hernia Umbi lical Hernia Active 09/29/2013 [facility] Problem Active 2013-09-29 15:45:57 [facility] Abrasion of other part of head, initial encounter Abrasion of other part of head, initial encounter 10/27/2019 10/29/2019 [facility] Problem 2019-10-27 17:00:00 2019-10-29 21:59:35 2019-10 21:59:35 [facility] Anterior dislocation of unspecified humerus, initial e ncounter Anterior dislocation of unspecified humerus, initial encounter 10/27/2019 10/29/2019 [facility] Problem 2019-10-27 17:00:00 2019 21:59:35 2019-10-29 21:59:35 [facility] Unspecified injury of head, initial encounter Unspecified injury of head, initial encounter 02/05/2019 02/07/2019 [facility] Problem 2019-02-05 17:00:00 2019-02-07 22:14:35 2019-02-07 22:14:35 [facility] Allergies, Adverse Reactions, Alerts Allergy Name Allergy Type Status Severity Reaction(s) Onset Date Inacti ve Date Treating Clinician Comments Source Not Known Not Known Active [facility] No Known Drug Allergies No Known Drug Allergies Active [facility] Social History Social Habit Start Date Stop Date Quantity Comments Source Social History 2013-09-29 15:45:57 2013-09-29 15:45:57 [facility] Medications Ordered Medication Name Filled Medication Name Start Date Stop Da te Current Medication? Ordering Clinician Indication Dosage Frequency Signature (SIG) Comments Components Source Omnipaque 300 2019-11-27 12:52:00 No Notes: (Same as:Omnipaque 300). WASTE: F/P - Black; E - Municipal Trash Bin [facility] Dotarem 376.9 mg /mL (0.5 mmol/mL) intravenous solution 2019-11-27 12:52:00 No Notes: (Same as: Dotarem) [facility] Valium 2019-10-27 22:57:00 No 5 mg, Route: IVP, Drug form: INJ, ONCE, Dosing Weight 104.545, kg, Priority: STAT, Start date: 10/27/19 17:57:00 CDT, Stop date: 10/27/19 17:57:00 CDT [facility] Fentanyl 2019-10-27 22:57:00 No 50 microgram, Route: IVP, ONCE, Dosing Weight 104.545, kg, Priority: STAT, Start date: 10/27/19 17:57:00 CDT, Stop date: 10/27/19 17:57:00 CDT [facility] Versed 2019-10-27 22:56:00 No 5 mg, Route: IVP, ONCE, Dosing Weight 104.545, kg, Priority: STAT, Start date: 10/27/19 17:56:00 CDT, Stop date: 10/27/19 17:56:00 CDT [facility] Acetaminophen 300 MG / Codeine Phosphate 30 MG Oral Tablet [Tylenol with Codeine #3] 2019-10-27 22:54:00 Yes 1 tab, PO, Q6H, PRN Pain, X 7 day, # 11 tab, 0 Refill(s) [facility] Ondansetron 2019-10-27 19:24:00 No Notes: (Same as: Marci) MEDICATION WASTE Product Size: 4 mg Product Wasted: ___ mg [facility] Morphine 2019-10-27 19:24:00 No Not es: (Same as:MORPhine Sulfate) [facility] tramadol hydrochloride 50 MG Oral Tablet 2019-02-05 19:56:00 Yes 50 mg = 1 tab, PO, BID, X 3 day, # 6 tab, 0 Refill(s) [facility] Tramadol 2019-02-05 19:19:00 No 50 kg, Priority: STAT, Start date: 02/05/19 14:19:00 CDT, Stop date: 02/05/19 14:19:00 CDT [facility] remove patch 2019-01-31 18:08:00 No 1 patch, Route: TOP, Drug form: ERFILM, ONCE, Start date: 01/31/19 13:08:00 CDT, Stop date: 01/31/19 13:08:00 CDT, 0 [facility] Aspirin Enteric Coated 81 mg oral delayed release tablet 2019-01-29 18:56:00 Yes 81 mg = 1 tab, PO, Daily, # 30 tab, 0 Refill(s), Pharmacy: [facility]/pharmacy #[id number] [facility] meclizine 25 mg oral tablet 2019-01-29 18:54:00 Yes 25 mg = 1 tab, PO, TID, PRN Dizziness, # 20 tab, 0 Refill(s), Pharmacy: [facility]/pharmacy #[id number] [facility] Protonix 2019-01-29 14:00:00 No Notes: Tablet should not be chewed or crushed. (Same as: Protonix) [facility] Lovenox 2019-01-29 01:00:00 No Notes: (Same as: Lovenox) [facility] lisinopril 40 mg oral tablet 2019-01-28 21:45:00 Yes 40 mg = 1 tab, PO, Daily, # 30 tab, 0 Refill(s) Anais dixon levothyroxine 75 mcg (0.075 mg) oral tablet 2019-01-28 21:45:00 Yes 75 microgram = 1 tab, PO, Daily, # 30 tab, 0 Refill(s) [facility] atorvastatin 40 mg oral tablet 2019-01-28 21:45:00 Yes 40 mg = 1 tab, PO, Bedtime, # 30 tab, 0 Refill(s) [facility] Vitamin D3 2000 intl units oral capsule 2019-01-28 21:45:00 Yes 2,000 IntlUnit = 1 cap, PO, Daily, # 100 cap, 3 Refill(s) [facility] 24 HR Bupropion Hydrochloride 150 MG Extended Release Tablet 2019-01-28 21:45:00 Yes 150 mg = 1 tab, PO, Q24H, # 3 0 tab, 0 Refill(s) [facility] Clonidine Hydrochloride 0.1 MG Oral Tablet 2019-01-28 21:45:00 Yes 0.1 mg = 1 tab, PO, Daily, # 90 tab, 3 Refill(s) [facility] metoprolol extended release 2019-01-28 21:45:00 Yes 50 mg, PO, Daily, 0 Refill(s) [facility] amLODIPine 5 mg oral tablet 2019-01-28 21:45:00 Yes 5 mg = 1 tab, PO, Daily, # 30 tab, 0 Refill(s) [facility] Meclizine 2019-01-28 18:04:00 No Notes: (Sa me as: Antivert) [facility] 72 HR Scopolamine 0.0139 MG/HR Transdermal Patch 2019-01-28 18:0 4:00 No Notes: Change patch every 72 hours (Same as: Transde rm-Scop) [facility] Nicotine 2019-01-28 17:07:00 No Notes: (Same as: Habitrol) "Remove old patch before application of new patch" WASTE: F/P - P Waste Black; E - P Waste Black [facility] Seroquel 2019-01-28 17:07:00 No Notes: (Stan e as: SEROquel) [facility] Hydralazine 2019-01-28 17:07:00 No Notes: (Same as: Apresoline) Push over 5 minutes [facility] Acetaminophen 325 MG / Hydrocodone Bitartrate 5 MG Oral Tabl et [[place] 5/325] 2019-01-28 17:07:00 No Notes: (Same as: [place] 325/5) Do not exceed 4gm/day of acetaminophen. [facility] Maalox Advanced Regular Strength SUSP 2019-01-28 17:07:00 N o Notes: (aluminum hydroxide-magnesium hyd-simethicone [id number]/5ml 30 ml ud RODGER) [facility] Albuterol 0.833 MG/ML / Ipratropium Brom lb 0.167 MG/ML Inhalant Solution [DuoNeb] 2019-01-28 17:07:00 No Notes: (S kristyn as: Duoneb) [facility] phenol 2019-01-28 17:07:00 No Notes: WASTE: F/P - Black; E - Municipal Trash Bin [facility] Mucinex 2019-01-28 17:07:00 No Notes: (Same as: Guaifenesin LA, Humibid LA, Mucinex) "Do Not Crush" Take medication with plenty of water. [facility] Simethicone 2019-01-28 17:07:00 No Notes: ( Same as: Mylicon) [facility] Morphine 2019-01-28 17:07:00 No Not es: (Same as:MORPhine Sulfate) [facility] Robitussin-AC oral syrup 2019-01-28 17:07:00 No Notes: (Same As: Robitussin AC) [facility] Tessalon Perles 2019-01-28 17:07:00 No Notes: (Same As: Tessalon Perles) "Do Not Crush" [facility] Acetaminophen 2019-01-28 17:07:00 No Notes: Do not exceed 4 gm/day. (Same as: Tylenol) [facility] Dextrose 50% Syringe 2019-01-28 17:07:00 No 12.5 gm, 25 mL, Route: IVP, Drug Form: INJ, Dosing Weight 113.636, kg, PRN, PRN Blood Glucose Results, Start date: 01/28/19 12:07:00 CDT, Duration: 30 day, Stop date: 02/27/19 12:06:00 CDT, 0 [facility] Melatonin 2019-01-28 17:07:00 No Notes: ( me as: Melatonin) [facility] Trazodone 2019-01-28 17:07:00 No Notes: ( me As: Desyrel) [facility] Ondansetron 2019-01-28 17:07:00 No Notes: (Same as: Zofran) MEDICATION WASTE Product Size: 4 mg Product Wasted: ___ mg [facility] Diphenhydramine 2019-01-28 17:07:00 No 25 mg, 1 tab, Route: PO, Drug form: TAB, Q6H, Dosing Weight 113.636, kg, PRN as needed for allergy symptoms, Start date: 01/28/19 12:07:00 CDT, Duration: 30 day, Stop date: 02/27/19 12:06:00 CDT, 0 [facility] POLYETHYLENE GLYCOL 3350 2019-01-28 17:07:00 No Notes: Dissolve in 8 oz of water or juice. (Same as: Miralax) [facility] Docusate 2019-01-28 17:07:00 No Notes: (Same as: Colace) (Do Not Crush) [facility] Glucagon 2019-01-28 17:07:00 No 1 mg, Route: IM, Drug form: PDR/INJ, PRN, Dosing Weight 113.636, kg, PRN Blood Glucose Results, Start date: 01/28/19 12:07:00 CDT, Duration: 30 day, Stop date: 02/27/19 12:06:00 CDT, 0 [facility] Bisacodyl 2019-01-28 17:07:00 No Notes: (Same As: Dulcolax, Bisco-Lax) [facility] Saline Flush 0.9% 2019-01-28 13:00:00 No Notes: Same as: BD Posiflush Sterile [facility] Sodium Chloride 0.9% (Bolus) IV 2019-01-28 13:00:00 No 1,000 mL, 1000 ml/hr, Infuse Over: 1 hr, Route: IV, 1,000, Drug form: INJ, ONCE, Priority: STAT, Dosing Weight 113.636 kg, Start date: 01/28/19 8:00:00 CDT, Stop date: 01/28/19 8:00:00 CDT, 0 [facility] Lipitor 40 MG Oral Tablet 2013-09-15 19:18:11 Yes (Active) [facility] VESIcare 5 MG Oral Tablet 2013-09-15 19:18:11 Yes (Active) [facility] CloNIDine HCl 0.1 MG Oral Tablet 2013-06-21 19:45:58 Yes (Active) [facility] Lisinopril 40 MG Oral Tablet 2013-05-31 06:00:00 Yes ; Start Date: 05/31/2013; End Date: (Active) [facility] No Active Medications 2013-04-17 19:18:13 Yes No Active Medications [facility] CloNIDine HCl 0.1 MG Oral Tablet Yes ; Start Date: ; End Date: (Active) [facility] Atorvastatin Calcium 40 MG Oral Tablet Yes ; Start Date: ; End Date: (Active) [facility] Vital Signs Vital Name Observation Time Observation Value Comments Source Respitory Rate 2019-10-28 00:06:00 [facility] Systolic (mm Hg) 2019-10-28 00:06:00 [facility] Diastolic (mm Hg) 2019-10-28 00:06:00 [facility] Respitory Rate 2019-10-27 22:55:00 [facility] Systolic (mm Hg) 2019-10-27 22:55:00 [facility] Diastolic (mm Hg) 2019-10-27 22:55:00 [facility] Respitory Rate 2019-10-27 22:48:00 [facility] Systolic (mm Hg) 2019-10-27 22:48:00 [facility] Diastolic (mm Hg) 2019-10-27 22:48:00 [facility] Heart Rate 2019-10-27 21:17:00 [facility] Heart Rate 2019-10-27 21:10:00 [facility] Heart Rate 2019-10-27 21:05:00 [facility] Height 2019-10-27 19:09:00 187.96 cm [facility] BMI Calculated 2019-10-27 19:09:00 [facility] Weight 2019-10-27 19:09:00 [facility] Temperature Oral (F) 2019-10-27 19:09:00 98.6 F [facility] Systolic (mm Hg) 2019-02-05 20:39:00 [facility] Diastolic (mm Hg) 2019-02-05 20:39:00 [facility] Respitory Rate 2019-02-05 20:39:00 [facility] Heart Rate 2019-02-05 20:39:00 [facility] Temperature Oral (F) 2019-02-05 20:39:00 98.1 F [facility] BMI Calculated 2019-02-05 17:41:00 [facility] Weight 2019-02-05 17:41:00 [facility] Height 2019-02-05 17:41:[address] [facility] Heart Rate 2019-02-05 17:41:00 [facility] Systolic (mm Hg) 2019-02-05 17:41:00 [facility] Diastolic (mm Hg) 2019-02-05 17:41:00 [facility] Respitory Rate 2019-02-05 17:41:00 [facility] Temperature Oral (F) 2019-02-05 17:41:00 98.1 [facility] Systolic (mm Hg) 2019-01-29 16:51:00 [facility] Diastolic (mm Hg) 2019-01-29 16:51:00 [facility] Respitory Rate 2019-01-29 16:51:00 [facility] Heart Rate 2019-01-29 16:51:00 [facility] Temperature Oral (F) 2019-01-29 16:51:00 97.8 F [facility] Temperature Oral (F) 2019-01-29 13:02:00 98.2 F [facility] Systolic (mm Hg) 2019-01-29 13:02:00 [facility] Diastolic (mm Hg) 2019-01-29 13:02:00 [facility] Respitory Rate 2019-01-29 13:02:00 [facility] Heart Rate 2019-01-29 13:02:00 [facility] Respitory Rate 2019-01-29 04:10:00 [facility] Systolic (mm Hg) 2019-01-29 04:10:00 [facility] Diastolic (mm Hg) 2019-01-29 04:10:00 [facility] Heart Rate 2019-01-29 04:10:00 [facility] Temperature Oral (F) 2019-01-29 04:10:00 98.6 F [facility] Height 2019-01-28 19:00:00 193.04 cm [facility] BMI Calculated 2019-01-28 19:00:00 [facility] Weight 2019-01-28 19:00:00 [facility] Weight 2019-01-28 12:30:00 [facility] BMI Calculated 2019-01-28 12:30:00 [facility] Height 2019-01-28 12:30:00 182.88 cm [facility] Procedures Procedure Date / Time Performed Performing Clinician Price ras Cataract surgery [facility] Laparoscopic repair of hernia [facility] Repair of retina [facility] Plan of Care Planned Activity Planned Date Details Comments Source Future Scheduled Test Plan of Care [code = 99175-3] [facility] Encounters Start Date/Time End Date/Time Encounter Type Admission Type Attendi [facility] Care Department Encounter ID Source 2019-11-27 12:30:00 2019-11-28 04:59:00 Outpatient MHIEALT [facility] [id number] [facility] 2019-11-27 07:30:00 2019-11-27 23:59:00 Outpatient Richard Mojica MHSE MHSE [id number] 2019-10-27 19:08:01 2019-10-28 01:19:00 Emergency [facility] [id number] [facility] 2019-10-27 14:08:01 2019-10-27 20:19:00 Outpatient Roberto Kennedy MHSE MHSE [id number] 2019-02-05 17:35:05 2019-02-05 20:49:00 Emergency [facility] [id number] [facility] 2019-02-05 12:35:05 2019-02-05 15:49:00 Outpatient Iman montes Ron Guzman MHSE MHSE [id number] 2019-01-28 12:28:35 2019-01-29 19:38:00 [id number] 2019-01-28 07:28:35 2019-01-29 14:38:00 Outpatient Janelle Villa MHSE MHSE [id number] 2013-09-29 10:45:58 2013-09-29 15:45:57 AUDIT MHIEALT [facility] [id number] [facility] 2013-09-29 10:45:58 2013-09-29 10:45:57 Outpatient MHIEA LT MHIEALT [id number] 2013-09-29 09:00:00 2013-09-15 19:18:11 [facility], Provider: CHAGO THAO, Status: Shay, Time: 9:00 AM [facility]ALT [facility] [id number] [facility] 2013-09-15 13:18:12 2013-09-15 19:18:11 AUDIT MHIEALT [facility] [id number] [facility] 2013-09-15 13:18:12 2013-09-15 13:18:11 Outpatient MHIEA LT MHIEALT [id number] 2013-06-21 13:45:58 2013-06-21 19:45:58 AUDIT MHIEALT [facility]ALT [id number] [facility] 2013-06-21 13:45:58 2013-06-21 13:45:58 Outpatient MHIEA LT MHIEALT [id number] 2013-05-31 13:00:25 2013-05-31 19:00:24 AUDIT MHIEALT [facility]ALT [id number] [facility] 2013-05-31 13:00:25 2013-05-31 13:00:24 Outpatient MHIEA LT MHIEALT [id number] 2013-04-17 14:18:14 2013-04-17 19:18:13 AUDIT MHIEALT [facility] [id number] [facility] 2013-04-17 14:18:14 2013-04-17 14:18:13 Outpatient MHIEA LT [facility]IEALT [id number] Results Test Description Test Time Test Comments Results Result Comments Source CHEM PANEL 2019-01-29 08:21:00 96 [facility] CHEM PANEL 2019-01-29 08:21:00 10 [facility] CHEM PANEL 2019-01-29 08:21:00 4.4 [facility] CHEM PANEL 2019-01-29 08:21:00 0.98 [facility] CHEM PANEL 2019-01-29 08:21:00 139 [facility] CHEM PANEL 2019-01-29 08:21:00 8.4 [facility] CHEM PANEL 2019-01-29 08:21:00 7.4 [facility] CHEM PANEL 2019-01-29 08:21:00 110 [facility] CHEM PANEL 2019-01-29 08:21:00 26 [facility] CHEM PANEL 2019-01-29 08:21:00 74 [facility] HEMATOLOGY 2019-01-29 08:21:00 7.9 [facility] HEMATOLOGY 2019-01-29 08:21:00 35.3 [facility] HEMATOLOGY 2019-01-29 08:21:00 12.2 [facility] HEMATOLOGY 2019-01-29 08:21:00 3.99 [facility] HEMATOLOGY 2019-01-29 08:21:00 142 [facility] HEMATOLOGY 2019-01-29 08:21:00 13.3 [facility] 2019-01-29 08:21[facility]-01-29 08:21:00 Test Item MCH (test code = MCH) 30.6 pg 27.0-31.0 [facility]XvukzygcuVIDPSQFIZJ4635-34-12 08:21:0088.4[facility] MassachusettsUxbdazygkZKPBCKHKRB4028-91-01 08:21:006.2MH IugbkmrctGUUYXJ6112-52-76 08:21:00* Test Item Value Reference Range Interpretation Comments CHD Risk (test code = CHD Risk) 2.61 1 4.00-7.30 [facility] MassachusettsBlshgionfXAAIZH6968-54-60 08:21:0099[facility] MassachusettsUxpgorhvqIGMKUA0542-23-89 08:21:00* Test Item Value Reference Range Interpretation Comments VLDL (test code = VLDL) 19 1 IvdnucucrAQQSZQ2159-16-56 08:21:0042 UqwobnahcCJABXN9038-76-71 08:21:0038[facility] MassachusettsJkfydbadpLQMKXE0557-12-87 08:21:0095[facility] MassachusettsSPECIAL MKSESWSSF4435-88-63 08:21:006.2[facility] QISXHRT9049-66-52 03:52:00<0.02[facility] CARDIAC DJHVJUT7071-68-66 21:30:00<0.02[facility] SOKMRXS9158-90-23 13:09:00<0.02[facility] IWKXKDD8539-38-07 13:09:0025 [facility] WCACVTZACUFF2566-88-14 13:09:0012.7[facility] MassachusettsLbtdfjcuwXLKUPTVDUQXU9336-35-39 13:09:0061 UwooradcfQQFDCQNNBIQQ9479-88-58 13:09:94713RR LbhgjfjmeKSURDBSFUXBX2939-65-11 13:09:53020DN YsvzmufhvREXRGJHSXKWK0513-10-00 13:09:008.0 [facility] PFIGLAMUVDPZ4439-87-33 13:09:0026 FwyvzqdmyVDJNGKOKITMY6971-96-70 13:09:003.7 HbwiwoiavMVWQYGVYIORI2485-34-65 13:09:33751NN LmlnvnahyBFWRULLCLQYW5988-80-48 13:09:0011 OvjrbktfzDBCJOSRCRJQW3853-98-49 13:09:001.15[facility] 2019-01-28 13:09:000.2[facility]HmznxdkveCQSPHZCUAE3151-82-00 13:09:000.3[facility] GYUBWETEFP0276-77-11 13:09:008.8[facility] MassachusettsIgoajtgjcJQPPFLCWLB6609-77-53 13:09:007.1[facility] HospitalEclzjzvspJLSUJJSZAU3516-12-45 13:09:002.6[facility] HospitalEzezuteegOLVXPJCMRM8028-40-32 13:09:000.5[facility] MassachusettsAgoxdoenbRCNWAUTDMV7596-10-13 13:09:000.6[facility] HospitalHE[facility] 2019-01-28 13:09:005.9[facility] MassachusettsKtzdenyvcNGUADUUFSU2474-04-46 13:09:0081.2[facility] YKFFNXVDBZ9476-06-84 13:09:007.8[facility] MassachusettsGuyknksokCWLEXWVTOV5519-88-22 13:09:83586UUEn[facility] MassachusettsKyndmjqbxQJPEYRZOBI4274-72-10 13:09:0013.4[facility] MassachusettsWqiresmuuZZRQQQCDDQ7558-53-34 13:09:0033.9[facility] MassachusettsNnknyjkkkGZJLDLJMLK4952-65-01 13:09:00* Test Item Value Reference Range Interpretation Comments MCH (test code = MCH) 30.3 pg 27.0-31.0 [facility] MassachusettsVttrqbwlnWWYSONNHJW5080-09-46 13:09:0089.3M[facility] HospitalEnyayokrzMZMHZTOHPR9950-95-36 13:09:0037.3M[facility] HospitalGljsvxoimBLMNBLGVLN1521-67-52 13:09:[address] [place], [place] [address]HEMATOLOGY 2019-01-28 13:09:004.17[facility] MassachusettsCqvglfimfPFLWLVVWWL3263-11-54 13:09:007.3[facility]
[2019-12-16 15:05] LABS: INR 0.87; PROTHROMBIN TIME 12.3 seconds (11.9-14.5)
[2019-12-16 15:06] LABS: PARTIAL THROMBOPLASTIN TIME 27.4 seconds (23.8-35.5)
[2019-12-16 15:13] LABS: ALANINE AMINOTRANSFERASE 20 IU/L (0-55); ALBUMIN 4.1 g/dL (3.5-5.0); ALBUMIN/GLOBULIN RATIO 1.3 (0.8-2.0); ALKALINE PHOSPHATASE 69 IU/L (40-150); ANION GAP 10.9 mmol/L (8-16); BLOOD UREA NITROGEN 11 mg/dL (7-26); BUN/CREATININE RATIO 13 (6-25); CALCIUM 9.8 mg/dL (8.4-10.2); CARBON DIOXIDE 27 mmol/L (22-29); CHLORIDE 104 mmol/L (98-107); CREATINE KINASE 41 IU/L (30-200); CREATININE, SERUM 0.88 mg/dL (0.72-1.25); EST GLOMERULAR FILTRATION RATE > 60 ML/MIN (60-); GLUCOSE 98 mg/dL (74-118); POTASSIUM 3.9 mmol/L (3.5-5.1); SODIUM 138 mmol/L (136-145)
[2019-12-16 15:49] LABS: BILIRUBIN,URINE NEGATIVE (NEGATIVE); CLARITY,URINE SL CLOUDY (CLEAR); COLOR,URINE YELLOW (YELLOW); KETONES,URINE NEGATIVE (NEGATIVE); LEUKOCYTE ESTERASE ,URINE NEGATIVE (NEGATIVE); NITRITE,URINE NEGATIVE (NEGATIVE); PROTEIN,URINE DIPSTICK NEGATIVE (NEGATIVE); URINE UROBILINOGEN 0.2 mg/dL (0.2 - 1)
--- NOTE | 2019-12-16 15:51 | Emergency Department Note ---
History of Present Illnes History of Present Illness Chief Complaint: General Medicine Complaints History of Present Illness This is a 79 year old male PATIENT SENT FROM DR ORTEGA OFFICE FOR DIRECT ADMISSION FOR RECTAL BLEEDING X 1 WEEK; DENIES ANY PAIN, NAUSEA, OR VOMITING. PATIENT STATES THE RECTAL BLEEDING HAPPENS INDEPENDENTLY OF BOWEL MOVEMENTS. STATES BLOOD PER RECTUM IS DARK RED. Historian: Patient Arrival Mode: Car Milk Route Deliverer Required: No Onset (how long ago): week(s) (1) Location: RECTAL Quality: BLEED Radiation: non-radiation Severity: moderate Onset quality: gradual Duration (how long): week(s) (1) Timing of current episode: intermittent Progression: waxing and waning Chronicity: new Context: recent illness Relieving factors: none Exacerbating factors: none Associated symptoms: denies other symptoms Past Medical/Family History Physician Review I have reviewed the patient's past medical and family history. Any updates have been documented here. Past Medical History Recent Fever: No Clinical Suspicion of Infectio: No New/Unexplained Change in Ment: No Past Medical History: Hypertension, Diabetes, Hypothyroidism, Hyperlipedemia Past Surgical History: Hernia Repair Social History Smoking Cessation: Never Smoker Counseling Performed: No Alcohol Use: None Any Illegal Drug Use: No TB Exposure/Symptoms: No Physically hurt or threatened: No Family History Family history of heart diseas: No Other Last Tetanus: UTD Any Pre-Existing Lines (PICC,: No Is patient up to date on immun: Yes Last Flu: utd Last Pneumovax: utd Review of Systems Review of Systems Constitutional: no symptoms EENTM: no symptoms Cardiovascular: no symptoms Respiratory: no symptoms Gastrointestinal: as per HPI, other (BLEEDING) Genitourinary: no symptoms Musculoskeletal: no symptoms Neurological: no symptoms Psychological: no symptoms Endocrine: no symptoms Hematological/Lymphatic: no symptoms Review of other systems All other systems reviewed and negative. Physical Exam Related Data Allergies: Coded Allergies: No Known Allergies (Unverified , 12/16/19) Triage Vital Signs Vital Signs Date Time Temp Pulse Resp B/P (MAP) Pulse Ox O2 Delivery O2 Flow Rate FiO2 12/16/19 12:51 98.4 84 20 151/95 97 Physical Exam CONSTITUTIONAL Constitutional: well-developed, well-nourished HENT HENT: normocephalic, atraumatic, oropharynx clear/moist, nose normal HENT L/R: left ext ear normal, right ext ear normal EYES Eyes: PERRL, conjunctivae normal NECK Neck: ROM normal PULMONARY Pulmonary: effort normal, breath sounds normal CARDIOVASCULAR Cardiovascular: regular rhythm, heart sounds normal, capillary refill normal, normal rate GASTROINTESTINAL Abdominal: soft, nontender, bowel sounds normal GENITOURINARY Genitourinary: exam deferred SKIN Skin: warm, dry MUSCULOSKELETAL Musculoskeletal: ROM normal NEUROLOGICAL Neurological: alert, oriented x 3, no gross motor or sensory deficits PSYCHOLOGICAL Psychological: mood/affect normal, judgement normal Results Laboratory Result Diagram: 12/16/19 1414 12/16/19 1414 Laboratory Laboratory Tests Test 12/16/19 14:14 12/16/19 14:01 White Blood Count 6.54 x10e3/uL (4.8-10.8) Red Blood Count 4.46 x10e6/uL (4.3-5.7) Hemoglobin 13.3 g/dL (14.0-18.0) Hematocrit 40.9 % (38.2-49.6) Mean Corpuscular Volume 91.7 fL (81-99) Mean Corpuscular Hemoglobin 29.8 pg (28-32) Mean Corpuscular Hemoglobin Concent 32.5 g/dL (31-35) Red Cell Distribution Width 12.9 % (11.7-14.4) Platelet Count 176 x10e3/uL (140-360) Neutrophils (%) (Auto) 73.5 % (38.7-80.0) Lymphocytes (%) (Auto) 17.7 % (18.0-39.1) Monocytes (%) (Auto) 6.6 % (4.4-11.3) Eosinophils (%) (Auto) 1.1 % (0.0-6.0) Basophils (%) (Auto) 0.6 % (0.0-1.0) Neutrophils # (Auto) 4.8 (2.1-6.9) Lymphocytes # (Auto) 1.2 (1.0-3.2) Monocytes # (Auto) 0.4 (0.2-0.8) Eosinophils # (Auto) 0.1 (0.0-0.4) Basophils # (Auto) 0.0 (0.0-0.1) Absolute Immature Granulocyte (auto 0.03 x10e3/uL (0-0.1) Prothrombin Time 12.3 seconds (11.9-14.5) Prothromb Time International Ratio 0.87 Activated Partial Thromboplast Time 27.4 seconds (23.8-35.5) Sodium Level 138 mmol/L (136-145) Potassium Level 3.9 mmol/L (3.5-5.1) Chloride Level 104 mmol/L (98-107) Carbon Dioxide Level 27 mmol/L (22-29) Anion Gap 10.9 mmol/L (8-16) Blood Urea Nitrogen 11 mg/dL (7-26) Creatinine 0.88 mg/dL (0.72-1.25) Estimat Glomerular Filtration Rate > 60 ML/MIN (60-) BUN/Creatinine Ratio 13 (6-25) Glucose Level 98 mg/dL (74-118) Calcium Level 9.8 mg/dL (8.4-10.2) Magnesium Level 2.0 MG/DL (1.3-2.1) Total Bilirubin 0.6 mg/dL (0.2-1.2) Aspartate Amino Transf (AST/SGOT) 13 IU/L (5-34) Alanine Aminotransferase (ALT/SGPT) 20 IU/L (0-55) Alkaline Phosphatase 69 IU/L (40-150) Creatine Kinase 41 IU/L (30-200) Creatine Kinase MB 0.80 ng/mL (0-5.0) Troponin I 0.011 ng/mL (0-0.300) Total Protein 7.2 g/dL (6.5-8.1) Albumin 4.1 g/dL (3.5-5.0) Globulin 3.1 g/dL (2.3-3.5) Albumin/Globulin Ratio 1.3 (0.8-2.0) Lab results reviewed: Yes Procedures 12 Lead ECG Interpretation Milk Route Deliverer: Interpreted by ED physician Date: Dec 16, 2019 Time: 14:28 Rhythm: sinus rhythm Rate: bradycardia (58) QRS axis: normal ST segments normal: Yes T waves normal: Yes Other findings: LVH Clinical Impression: abnormal ECG Critical Care Time Subsequent provider I assumed direction of critical care for this patient from another provider of my specialty. Assessment & Plan Assessment & Plan Final Impression: (1) GASTROINTESTINAL HEMORRHAGE, UNSPECIFIED Assessment & Plan ADMIT BARRERA, CONSULT TO JORDAN Depart Disposition: ADMITTED Last Vital Signs Date Time Temp Pulse Resp B/P (MAP) Pulse Ox O2 Delivery O2 Flow Rate FiO2 12/16/19 15:29 70 16 162/89 98 12/16/19 12:51 98.4 Medications in the ED Pantoprazole Sodium 40 mg ONCE STAT IV Last administered on 12/16/19at 15:36; Admin Dose 40 MG; Start 12/16/19 at 13:59; Stop 12/16/19 at 14:12; Status DC Ondansetron HCl 4 mg ONCE STAT IV Last administered on 12/16/19at 15:36; Admin Dose 4 MG; Start 12/16/19 at 13:59; Stop 12/16/19 at 14:12; Status DC TRINITY BARBOZA MD Dec 16, 2019 15:51
[2019-12-16 15:59] LABS: BACTERIA,URINE RARE /HPF
[2019-12-16 19:38] LABS: BASOPHILS % 0.4 % (0.0-1.0); EOSINOPHILS # (AUTO) 0.1 (0.0-0.4); EOSINOPHILS % 1.5 % (0.0-6.0); HEMATOCRIT 37.9 % (38.2-49.6); HEMOGLOBIN 12.3 g/dL (14.0-18.0); LYMPHOCYTES # (AUTO) 1.1 (1.0-3.2); LYMPHOCYTES % 20.6 % (18.0-39.1); MEAN CORPUSCULAR HEMOGLOBIN 29.2 pg (28-32); MEAN CORPUSCULAR HGB CONC 32.5 g/dL (31-35); MONOCYTES # (AUTO) 0.4 (0.2-0.8); MONOCYTES % 6.6 % (4.4-11.3); NEUTROPHILS # (AUTO) 3.8 (2.1-6.9); NEUTROPHILS % 70.5 % (38.7-80.0); PLATELET COUNT 156 x10e3/uL (140-360); RED BLOOD COUNT 4.21 x10e6/uL (4.3-5.7)
[2019-12-16 19:59] LABS: CREATINE KINASE MB 0.8 ng/mL (0-5.0)
[2019-12-16] MEDS ORDERED: METOPROLOL SUCC50 MG PO (22:50)
[2019-12-16] MEDS ORDERED: ATORVASTATIN CA40 MG PO (22:50)
[2019-12-16] MEDS ORDERED: ULTRAM 50MG50 MG PO (22:50)
[2019-12-16] MEDS ORDERED: LEVOTHYROXINE75 MCG PO (22:50)
[2019-12-16] MEDS ORDERED: LISINOPRIL40 MG PO (22:50)
[2019-12-16] MEDS ORDERED: AMLODIPINE BESYL5 MG PO (22:50)
[2019-12-16 23:15] VITALS: BP 150/96
[2019-12-16 23:30] VITALS: BP 150/96
--- NOTE | 2019-12-16 23:30 | NUR ---
pt received from er via bed. no ss of distress noted upon admission. pt oriented to rm. no co pain at time. tele in place per orders. blood collected and sent to lab per orders. hx obtained at time. will cont to follow poc. call nguyen within reach.
[2019-12-16 23:45] VITALS: BP 150/96
[2019-12-16] MEDS: PANTOPRAZOLE 40 MG 10ML VIAL IV SCH (23:51)
[2019-12-17] VITALS (7 sets, daily range): BP systolic 136–167; BP diastolic 78–91
[2019-12-17 00:13] LABS: BASOPHILS % 0.5 % (0.0-1.0); EOSINOPHILS # (AUTO) 0.1 (0.0-0.4); EOSINOPHILS % 1.9 % (0.0-6.0); HEMATOCRIT 38.4 % (38.2-49.6); HEMOGLOBIN 12.7 g/dL (14.0-18.0); LYMPHOCYTES # (AUTO) 1.2 (1.0-3.2); MEAN CORPUSCULAR HEMOGLOBIN 29.5 pg (28-32); MEAN CORPUSCULAR HGB CONC 33.1 g/dL (31-35); MEAN CORPUSCULAR VOLUME 89.1 fL (81-99); MONOCYTES # (AUTO) 0.4 (0.2-0.8); MONOCYTES % 6.7 % (4.4-11.3); NEUTROPHILS # (AUTO) 4.1 (2.1-6.9); NEUTROPHILS % 70.6 % (38.7-80.0); RED BLOOD COUNT 4.31 x10e6/uL (4.3-5.7); RED CELL DISTRIBUTION WIDTH 12.9 % (11.7-14.4)
[2019-12-17 00:18] LABS: PLATELET COUNT 201 x10e3/uL (140-360)
--- NOTE | 2019-12-17 04:19 | NUR ---
blood collected and sent to lab. pt tolerated well. no ss of distress noted. call nguyen within reach.
[2019-12-17 04:31] LABS: BASOPHILS % 0.4 % (0.0-1.0); EOSINOPHILS # (AUTO) 0.1 (0.0-0.4); EOSINOPHILS % 1.6 % (0.0-6.0); HEMATOCRIT 36.2 % (38.2-49.6); LYMPHOCYTES # (AUTO) 1.1 (1.0-3.2); LYMPHOCYTES % 20.1 % (18.0-39.1); MEAN CORPUSCULAR HEMOGLOBIN 29.2 pg (28-32); MEAN CORPUSCULAR HGB CONC 33.1 g/dL (31-35); MEAN CORPUSCULAR VOLUME 88.1 fL (81-99); MONOCYTES # (AUTO) 0.4 (0.2-0.8); NEUTROPHILS % 70.4 % (38.7-80.0); RED BLOOD COUNT 4.11 x10e6/uL (4.3-5.7); RED CELL DISTRIBUTION WIDTH 12.8 % (11.7-14.4)
[2019-12-17 04:33] LABS: PLATELET COUNT 146 x10e3/uL (140-360)
[2019-12-17 04:54] LABS: CREATINE KINASE MB 0.7 ng/mL (0-5.0)
[2019-12-17 05:07] LABS: ANION GAP 12.1 mmol/L (8-16); BLOOD UREA NITROGEN 8 mg/dL (7-26); BUN/CREATININE RATIO 10 (6-25); CALCIUM 8.8 mg/dL (8.4-10.2); CARBON DIOXIDE 25 mmol/L (22-29); CHLORIDE 107 mmol/L (98-107); CREATININE, SERUM 0.82 mg/dL (0.72-1.25); EST GLOMERULAR FILTRATION RATE > 60 ML/MIN (60-); GLUCOSE 93 mg/dL (74-118); POTASSIUM 4.1 mmol/L (3.5-5.1); SODIUM 140 mmol/L (136-145)
--- NOTE | 2019-12-17 06:20 | NUR ---
spoke to tonia with dr norton answering service regarding new consult. awaiting return call. will notify oncoming nurse.
--- NOTE | 2019-12-17 07:22 | NUR ---
PATIENT IN BED WITH HEAD OF BED ELEVATED WATCHING TV, NO COMPLAIN VOICED. TELEMETRY BOX IN PLACE. BED IN LOWER POSITION, CALL LIGHT AT REACH.
[2019-12-17] MEDS ORDERED: HYDRALAZINE HCL 20 MG/ML VIAL IV PRN (08:30)
[2019-12-17] MEDS: PANTOPRAZOLE 40 MG 10ML VIAL IV SCH ×2 (09:00→21:00)
[2019-12-17] MEDS: TRAMADOL HCL 50 MG TAB PO SCH ×2 (09:00→17:00)
[2019-12-17] MEDS: AMLODIPINE BESYLATE 5 MG TAB PO SCH (09:30)
[2019-12-17] MEDS: LEVOTHYROXINE SODIUM 75 MCG TAB PO SCH (09:30)
[2019-12-17] MEDS: METOPROLOL SUCCINATE 50 MG TAB XL PO SCH (09:30)
--- NOTE | 2019-12-17 12:16 | NUR ---
GI DOCTOR IN TO SEE PATIENT, NEW ORDERS RECEIVED.
[2019-12-17 13:52] LABS: CREATINE KINASE MB 0.7 ng/mL (0-5.0)
--- NOTE | 2019-12-17 14:10 | History and Physical ---
PRIMARY CARE PHYSICIAN: Dr. Chinmay Santana. FILTERS ASSEMBLER: Dr. Jarek Cook CHIEF COMPLAINT: Dark blood on underwear. HISTORY: This is a 79 years old male, who had a colonoscopy already this year, did not find any significant abnormality. The patient was doing fine until he was having some dark blood in his underwear. No history of hemorrhoids. The patient had no pain. He was told to go to the emergency room for evaluation. In the emergency room, his chemistry panel was completely normal. His hemoglobin and hematocrit from 13.3 and 40.9 respectively, dropped down to 12 and 36.2. The patient is otherwise stable. No chest pain or shortness of breath. PAST MEDICAL HISTORY: Hypertension, dyslipidemia, hypothyroidism. PAST SURGICAL HISTORY: Right inguinal hernia repair and also colonoscopy recently. SOCIAL HISTORY: The patient does not smoke or use alcohol. No regular drugs. ALLERGIES: NO KNOWN ALLERGIES. HOME MEDICATIONS: List reviewed. REVIEW OF SYSTEMS: Otherwise unremarkable. PHYSICAL EXAMINATION: VITAL SIGNS: Temperature is 98, blood pressure 167/87, pulse rate 75, respirations 18. GENERAL: The patient is not in acute distress. He is awake. HEENT: Normocephalic and atraumatic. Anicteric. NECK: Supple grossly. PULMONARY: Clear. CARDIOVASCULAR: Regular rate and rhythm. ABDOMEN: Soft and unremarkable. EXTREMITIES: No cyanosis or edema NEUROLOGIC: No focal deficit. LABORATORY DATA: Sodium is 140, potassium 4.1, chloride 107, bicarb 25, BUN is 8, creatinine 0.8, glucose 93. WBC is 5.6, hemoglobin 12, hematocrit 36.2, and platelets is 146. IMPRESSION: Dark blood on underwear, could be from small bowel bleed. Bleed is minimal. The patient has hemodilution. He has been getting IV fluid and even that his hemoglobin and hematocrit are 12 and 36.2. PLAN: Per Dr. Jarek Cook. The patient on observation. We will follow up. We will resume the patient's home medication. MD ISSAC Sosa/NICOLE /[id number]
--- NOTE | 2019-12-17 15:54 | NUR ---
PATIENT ASSISTED TO THE RESTROOM AND BACK TO BED. SITTING UP IN BED TALKING TO FAMILY MEMBER VISITING, CALL LIGHT AT REACH.
[2019-12-17] MEDS ORDERED: PEG (High)/E-LYTE SOLN 4,000 ML BTL PO ONE (18:00)
--- NOTE | 2019-12-17 19:15 | NUR ---
patient received awake, alert, lying quietly in bed. no c/o pain noted. golytley initiated and drinking without difficulty. patient npo after midnight for colonoscopy in am. patient verbalizes understanding of this. pm assessment complete. call nguyen placed within reach. patient instructed to call for assistance when needed.
--- NOTE | 2019-12-17 22:30 | NUR ---
patient refusing to wear telemetry. call placed to Dr. Villa re: telemetry. order received to d/c'd telemetry and to document that patient is refusing to wear it. telemetry d/c'd at this time per orders. Addendum: 12/18/19 at 0627 by Sirena Mayer RN wrong patient
--- NOTE | 2019-12-17 23:30 | NUR ---
consent obtained for colonoscopy at this time and placed on patients chart.
[2019-12-18] VITALS: BP 140/89
[2019-12-18 04:00] VITALS: BP 132/76
--- NOTE | 2019-12-18 05:30 | NUR ---
stool not clear this am. call placed to dr. norton at this time.
[2019-12-18] MEDS: LEVOTHYROXINE SODIUM 75 MCG TAB PO SCH (05:42)
[2019-12-18 06:44] LABS: BASOPHILS % 0.3 % (0.0-1.0); EOSINOPHILS # (AUTO) 0.1 (0.0-0.4); EOSINOPHILS % 1.1 % (0.0-6.0); HEMATOCRIT 39.2 % (38.2-49.6); LYMPHOCYTES # (AUTO) 0.9 (1.0-3.2); LYMPHOCYTES % 12.4 % (18.0-39.1); MEAN CORPUSCULAR HGB CONC 33.2 g/dL (31-35); MEAN CORPUSCULAR VOLUME 90.5 fL (81-99); MONOCYTES # (AUTO) 0.4 (0.2-0.8); MONOCYTES % 4.8 % (4.4-11.3); NEUTROPHILS # (AUTO) 6.1 (2.1-6.9); PLATELET COUNT 139 x10e3/uL (140-360); RED BLOOD COUNT 4.33 x10e6/uL (4.3-5.7); RED CELL DISTRIBUTION WIDTH 12.8 % (11.7-14.4)
[2019-12-18 06:48] LABS: ANION GAP 12.8 mmol/L (8-16); BLOOD UREA NITROGEN 8 mg/dL (7-26); BUN/CREATININE RATIO 11 (6-25); CALCIUM 8.5 mg/dL (8.4-10.2); CARBON DIOXIDE 22 mmol/L (22-29); CHLORIDE 106 mmol/L (98-107); CREATININE, SERUM 0.76 mg/dL (0.72-1.25); EST GLOMERULAR FILTRATION RATE > 60 ML/MIN (60-); GLUCOSE 89 mg/dL (74-118); POTASSIUM 3.8 mmol/L (3.5-5.1); SODIUM 137 mmol/L (136-145)
--- NOTE | 2019-12-18 07:05 | NUR ---
RCD PT AT BED PT IS ALERT AND ORIENTED RESTING ON BED IV PATENT BY SALINE FLUSH PT NPO FOR PROCEDURE BED LOW AND LOCKED CALL LIGHT IN REACH
[2019-12-18 07:37] VITALS: BP 137/67
[2019-12-18 08:18] VITALS: BP 137/67
[2019-12-18] MEDS: PANTOPRAZOLE 40 MG 10ML VIAL IV SCH (09:00)
[2019-12-18] MEDS: METOPROLOL SUCCINATE 50 MG TAB XL PO SCH (09:00)
[2019-12-18] MEDS: TRAMADOL HCL 50 MG TAB PO SCH (09:00)
[2019-12-18] MEDS: AMLODIPINE BESYLATE 5 MG TAB PO SCH (09:00)
--- NOTE | 2019-12-18 09:00 | NUR ---
DR ORTEGA CAME TO SEE THE PT AND HE DECIDED TO DO THE PROCEDURE IN OUT PATIENT BASIS
[2019-12-18 11:13] VITALS: BP 160/79
--- NOTE | 2019-12-18 11:19 | NUR ---
PATIENT WENT HOME IN SAFE CONDITION WITH HIS
--- NOTE | 2019-12-18 23:31 | Discharge Summary ---
PRIMARY CARE PHYSICIAN: Chinmay Santana SUPERIOR COURT JUDGE: Jarek Cook MD FINAL DIAGNOSES: 1. Dark blood tinged found on patient's undergarment. 2. No active GI bleed. SUMMARY: This is a 79-year-old male, came in with some dark tinged blood in the underwear, but not in the stool. It was not bright red blood per rectum. The patient did have some blood work. Matter of fact, his hemoglobin went up to 13 today instead of trending down. The patient did have some problem with prepping because it was not clear. He was supposed to have an endoscopy today, but because of poor prep, the patient's procedures delayed. Dr. Cook has recommend the patient to follow up as an outpatient for procedures done. The patient is otherwise stable. He is agreeable with that. He want to go home today. I will discharge the patient home, resume home medication. I advised the patient to have a full liquid diet for now and then follow with Dr. Cook for procedure scheduled as an outpatient. The patient is otherwise stable, discharged home today and follow up with Dr. Cook as planned. MD ISSAC Sosa/NICOLE /[id number]
== END 2019-12-18 11:19 | disposition home or self-care (01) ==
LOC: ER 12:51 → INTOOBSV 14:42 → ERHOLD 14:42 → MED/SURG3 23:15
PROVIDERS: ADMIT Internal Medicine; ATTEND Internal Medicine
DX: K62.5 Hemorrhage of anus and rectum (principal); I10 Essential (primary) hypertension; E03.9 Hypothyroidism, unspecified; E78.5 Hyperlipidemia, unspecified
CPT/HCPCS: 36415 ×3; 80048 ×2; 80053; 81001; 82550 ×2; 82553 ×2; 82948 ×2; 83735; 84484 ×2; 85025 ×3; 85610; 85730; 86850; 86900; 87635; 93005; 96376; 99284; C9113 ×3; G0378 ×3; J2405; J7030